=== PATIENT | female | born 1950 | race Caucasian/White ===

== ENCOUNTER 2018-09-21 15:03 | Inpatient (IN) | payer OTHER ==
[~2018-09-21] VITALS: Ht 167.6 cm; Wt 78.6 kg
[2018-09-21 15:05] VITALS: BP 148/118
[2018-09-21 15:47] LABS: URINE BILIRUBIN NEGATIVE (Negative); URINE BLOOD 3+ (Negative); URINE CLARITY SL CLOUDY; URINE COLOR YELLOW; URINE GLUCOSE-RANDOM* 3+ (Negative); URINE KETONES NEGATIVE (Negative); URINE NITRITE-REFLEX NEGATIVE (Negative); URINE PROTEIN (DIPSTICK) 2+ (Negative); URINE UROBILINOGEN 0.2 E.U./dl (0.2-1.0)
--- NOTE | 2018-09-21 15:48 | EKG ---
[place] [address] [facility] [place] [address] ELECTROCARDIOGRAM REPORT Name: CHARLOTTE CHAPPELL Room #: REG Yoselyn#: [id number] ������������������ Admission: 09/21/18 ������������������ Attend Phys: Discharge: ������������������ Date of : 48 Report #: [id number] ����������������������������������������������������������������� [id number] THIS REPORT FOR: //name// [facility] ED Test Date: 2018-09-21 Test Time: 15:31:03 Pat Name: CHARLOTTE CHAPPELL Department: Room: Gender: F Nutrition Consultant: ABBY : 1950 Requested By: Wendi Noel Order Number: [id number] MD: Rodrigo Collins Measurements Intervals [place] Rate: 108 P: 6 ND: 109 QRS: -61 QRSD: 95 T: 65 QT: 316 QTc: 424 Interpretive Statements Sinus tachycardia Left anterior fascicular block Low voltage, precordial leads Consider anterior infarct No previous ECG available for comparison Electronically Signed On 09-21-2018 15:48:32 CDT by Rodrigo Collins [email or web address] ��������������������������������������������� <ELECTRONICALLY SIGNED> ���������������������������������������� By: Rodrigo Collins MD ��������������������������������������������� 09/21/18 1548 1531 1531 Rodrigo Collins MD /MILANA
[2018-09-21 15:55] LABS: URINE LEUKOCYTES-REFLEX 2+ (Negative)
[2018-09-21 16:01] LABS: HEMATOCRIT 29.5 % (37.0-47.0); HEMOGLOBIN 9.9 gm/dL (12.0-15.0); MCH 30.6 pg (26.0-34.0); MCHC 33.5 g/dL (28.0-37.0); MCV 91.2 fL (80.0-100.0); PLATELET COUNT 222 thou/uL (150-400); RBC 3.23 mil/uL (4.20-5.00); RDW 16.1 % (10.5-14.5); WBC 17.1 thou/uL (4.0-11.0)
[2018-09-21 16:05] LABS: CASTS None Seen /LPF (None Seen); CRYSTALS None Seen /LPF (None Seen); SQUAMOUS None Seen /LPF (0-3); URINE WBC-REFLEX >25 Many /HPF (0-5)
[2018-09-21 16:06] LABS: BACTERIA-REFLEX >30 Many /HPF (None Seen); URINE RBC 3-10 Few /HPF (0-2)
[2018-09-21 16:13] LABS: ANION GAP 14 mmol/L (7-16); BUN 36 mg/dL (7-18); CALCIUM 10.2 mg/dL (8.5-10.1); CHLORIDE 102 mmol/L (98-107); CO2 22 mmol/L (21-32); CREATININE 3.8 mg/dL (0.6-1.0); GLUCOSE 121 mg/dL (74-106); POTASSIUM 4.3 mmol/L (3.5-5.1); SODIUM 138 mmol/L (136-145)
[2018-09-21 16:21] LABS: ABSOLUTE NEUTROPHILS 13.3 thou/uL (1.4-8.2); ANISOCYTOSIS 2+; METAMYELOCYTES 1 %
[2018-09-21 16:22] LABS: POLYCHROMASIA OCCASIONAL
[2018-09-21 16:23] LABS: ALBUMIN 2.8 g/dL (3.4-5.0); SGOT 26 U/L (15-37); SGPT 20 U/L (30-65); TOTAL BILIRUBIN 0.2 mg/dL (<0.1-1.0); TOTAL PROTEIN 7.6 g/dL (6.4-8.2); TROPONIN-I <0.06 ng/mL (<0.06)
[2018-09-21 17:44] LABS: ALBUMIN 2.7 g/dL (3.4-5.0); TOTAL PROTEIN 7.6 g/dL (6.4-8.2)
[2018-09-21 18:12] LABS: TSH 2.916 uIU/mL (0.358-3.740)
[2018-09-21 18:26] VITALS: BP 180/85
[2018-09-21 18:41] VITALS: BP 137/74
[2018-09-21] MEDS ORDERED: ARIPIPRAZOLE5 MG PO (19:17)
[2018-09-21] MEDS ORDERED: CLARITIN10 MG PO (19:17)
[2018-09-21] MEDS ORDERED: POTASSIUM20 PO (19:18)
[2018-09-21] MEDS ORDERED: MULTIPLE VITAM1 EAC2 PO (19:18)
[2018-09-21] MEDS ORDERED: VITAMIN E400 UNIT PO (19:19)
[2018-09-21] MEDS ORDERED: BENZTROPINE ME0.5 MG PO (19:19)
[2018-09-21] MEDS ORDERED: TYLENOL325 MG PO (19:20)
[2018-09-21] MEDS ORDERED: VALPROIC A250 MG/51 PO (19:20)
[2018-09-21] MEDS ORDERED: OYSTER SHELL C500 MG PO (19:21)
[2018-09-21] MEDS ORDERED: VISTARIL 25 MG25 M1 PO (19:21)
[2018-09-21] MEDS ORDERED: TRAZODONE HCL100 MG PO (19:22)
[2018-09-21] MEDS ORDERED: COLACE100 MG PO (19:23)
[2018-09-21] MEDS ORDERED: MIRALAX17 G1 PO (19:23)
[2018-09-21] MEDS ORDERED: SILTUSSIN100 MG/5 M PO (19:24)
[2018-09-21] MEDS ORDERED: SYNTHROID88 MCG PO (19:24)
[2018-09-21 20:45] VITALS: BP 147/84
[2018-09-22] MEDS ORDERED: VISTARIL 25 MG25 M1 PO (00:37)
[2018-09-22] MEDS ORDERED: SILTUSSIN100 MG/5 M PO (00:58)
[2018-09-22] MEDS ORDERED: OXYCODONE HCL 55 MG PO (01:01)
[2018-09-22 01:27] VITALS: BP 113/60
[2018-09-22 03:23] VITALS: BP 113/60
[2018-09-22 04:07] VITALS: BP 129/65
[2018-09-22 05:21] LABS: HEMATOCRIT 27.4 % (37.0-47.0); HEMOGLOBIN 8.8 gm/dL (12.0-15.0); MCH 29.8 pg (26.0-34.0); MCHC 32.2 g/dL (28.0-37.0); MCV 92.3 fL (80.0-100.0); RBC 2.97 mil/uL (4.20-5.00); RDW 16.4 % (10.5-14.5); WBC 15.8 thou/uL (4.0-11.0)
[2018-09-22 05:33] LABS: CALCIUM 9.1 mg/dL (8.5-10.1); CREATININE 3.2 mg/dL (0.6-1.0); POTASSIUM 4.1 mmol/L (3.5-5.1)
--- NOTE | 2018-09-22 05:57 | NUR ---
PT. ARRIVED AT 2009; ABLE TO AMBULATE WITH X1 ASSISST; ALERT TO PERSON; PLACE; SITUATION; NO TIME; C/O BACK PAIN; TEMPERATURE 102 F; BACK SIZER NOTIFIED; ORDERS RECEIVED; TEMPERATURE REASSESMENT 99.9; COOPERATIVE; CALM; ADMISSION ASSESSMENT OBTAINED FROM PT. AND CHART; PT. ABLE TO ANSWER SIMPLE QUESTIONS; NO GOOD HISTORIAN; CONSENTS NOT SIGNED; NOT RELATIVE AT THE BED SIDE; WILL PASS ON REPORT; EDUCATED ABOUT CALLING BEFORE STANDING UP; ST. UNDERSTANDING; THROUGH THE NIGHT PT. CALL APROPIATELY; AT 0202 NURSE INFORMED ABOUT BLOOD CULTURE RESULTS; BACK SIZER NOTIFIED; NO NEW ORDERS; PT. ABLE TO REST THROUGH THE NIGHT; ASSESSMENT CHARGED; FOLLOWING POC; WILL KEEP MONITORING;
[2018-09-22 08:00] VITALS: BP 132/79
[2018-09-22 12:50] LABS: URINE CREATININE-RANDOM* 18.2 mg/dL; URINE PROTEIN-RANDOM* 41.9 mg/dL (<11.9)
[2018-09-22 13:08] VITALS: BP 132/71
--- NOTE | 2018-09-22 17:58 | NUR ---
Assumed pt care this am, she is able to call appropriately and will wait to use the bed side commode. Able to answer simple questions but tends to get confused at times. Pt is able to follow simple commanda and able to answer simple straight forward questions. Daughter came to visit who is the guardian as well. Daughter does not have much history on the pt since it was onlt recent that they reconnected. Daughter will try to get other medical records of the pt, since she mentioned that the facility she is at is current and may not have it. Will endorse this [facility] nurse. POC followed, no verbalizations from the patient for any issues or complaints.
[2018-09-22 20:13] VITALS: BP 140/76
--- NOTE | 2018-09-23 05:32 | NUR ---
PT AOX2 AND SLEPT VERY LITTLE THIS SHIFT. PT USED THE BEDSIDE COMMODE FREQUEANTLY THIS SHIFT VOIDING ~100cc every 30 mins. CALLED [facility] TO OBTAIN MEDICAL RECORDS WITH NO SUCCESS. PT REQUESTING COGENTIN DUE TO TREMORS. WILL CALL [facility] AGAIN IN THE AM. NO OTHER QUESTIONS OR CONCERNS AT THIS TIME. WILL CONTINUE TO MONITOR.
[2018-09-23 06:10] LABS: ALBUMIN 2.5 g/dL (3.4-5.0); POTASSIUM 4.5 mmol/L (3.5-5.1)
[2018-09-23 06:11] LABS: CREATININE 2.2 mg/dL (0.6-1.0)
[2018-09-23 08:00] VITALS: BP 157/85
[2018-09-23 08:22] LABS: HEMATOCRIT 25.9 % (37.0-47.0); HEMOGLOBIN 8.4 gm/dL (12.0-15.0); MCH 29.6 pg (26.0-34.0); MCHC 32.5 g/dL (28.0-37.0); RBC 2.85 mil/uL (4.20-5.00); RDW 16.5 % (10.5-14.5)
--- NOTE | 2018-09-23 13:49 | HC ---
[facility] [place] [address] CONSULTATION Name: CHARLOTTE CHAPPELL Room #: 459-P ADM IN M.R.#: [id number] Admission: 09/21/18 ������������������ Attend Phys: Lui Wahl MD Discharge: ������������������ Date of : [birth year] Report #: [id number] THIS REPORT FOR: //name// CC: Leonard Wahl DATE OF SERVICE: 09/22/2018 REASON FOR CONSULTATION: I was asked to evaluate concerning pyelonephritis and gram-negative bacilli bacteremia. HISTORY OF PRESENT ILLNESS: The patient is a 67-year-old with underlying bipolar disorder, schizophrenia who resides in a longterm. Over the last week, she has been feeling poorly. She has had nonproductive cough along with dysuria. The patient could not give me much more detail of significance. I did talk with her daughter to gain more history. It is evident that she has had a 30+ year history of bipolar disorder and schizophrenia. This has limited her significantly. She was hospitalized in 2017, been in longterm since. She has also been diagnosed with colon cancer, stage III several years ago, had colon resection, but refused adjuvant chemotherapy. She has followed up with Oncology over the last month, but has not completed her followup. She was hospitalized, placed on ceftriaxone. Blood cultures now are showing gram-negative bacilli. Urine culture is pending. She has had continued cough with no pleuritic chest pain. No hemoptysis. Minimal shortness of breath. She does not exercise. She has had some dysuria. No back or flank pain. No gross hematuria. No vaginal discharge. Stools have been normal. REVIEW OF SYSTEMS: A 10-point review of systems is negative other than what is described above. ALLERGIES: None known. MEDICATIONS: As noted on her MAR, which were reviewed, now on ceftriaxone. PAST MEDICAL HISTORY: Hypertension, hypothyroidism, bipolar disorder, schizophrenia, colon cancer, and recurrent urinary tract infections. FAMILY HISTORY: Noncontributory. SOCIAL HISTORY: Nonsmoker, no significant alcohol intake. PHYSICAL EXAMINATION: VITAL SIGNS: Afebrile, hemodynamically stable. VITAL SIGNS: Maximum temperature is 102.5 on admission. She has been on 2 liters of oxygen per nasal cannula, heart rate was 109, and blood pressure 132/71. [address] [address] CONSULTATION Name: CHARLOTTE CHAPPELL Room #: 459-P [facility] IN M.R.#: [id number] Admission: 09/21/18 ������������������ Attend Phys: Lui Wahl MD Discharge: ������������������ Date of : 48 Report #: [id number] SKIN: Without rash or decubitus. No palpable adenopathy. Moderately obese. HEENT: Eyes are unremarkable with no scleral icterus. Mouth without mucositis. NECK: Supple, with no thyromegaly or mass. LUNGS: Clear. HEART: Regular, without murmur, gallop or rub. ABDOMEN: Soft and nontender with no hepatosplenomegaly or mass. She had bilateral CVA tenderness, which was mild to percussion. GENITAL: Not performed. Perianal examination was unremarkable. RECTAL: Not performed. EXTREMITIES: Without clubbing, cyanosis or edema. Cranial nerves are intact. Strength in upper and lower extremities was normal. Sensation in upper and lower extremities to test are normal. Mood, flat affect. LABORATORY STUDIES: Sodium 145, potassium 4.1, bicarbonate 21, creatinine 3.2. Liver function test is normal. Hemoglobin is 8.8, platelet count 194,000, and white count 15.8. Differential left shifted. Blood cultures 1 of 2 gram-negative bacilli. Urine culture is pending. Urinalysis, many wbc's and bacteria. Chest x-ray was clear. CT noncontrast of the abdomen was nondiagnostic. She did have several lesions to her kidneys and the liver. Ultrasound shows 1.6 cm lesion to the left kidney, which is indeterminate, and also 2 right kidney cysts, 3 cm; right hepatic cyst and gallstones. IMPRESSION: Gram-negative bacteremia, pyelonephritis, indeterminate cough, acute kidney injury with creatinine of 3.2. Bilateral renal lesions. The left kidney lesion is indeterminate, anemia, history of colon cancer, stage III without adjuvant chemotherapy; bipolar disorder and schizophrenia. RECOMMENDATION: We will continue ceftriaxone pending culture results. Once her renal function improves with, repeat CT scan with contrast to further evaluate the left kidney mass. Maintain nutrition and hydration. Nephrology service is following. ��������������������������������������������� <ELECTRONICALLY SIGNED> ���������������������������������������� By: Shiva Herrera MD ��������������������������������������������� 09/23/18 1349 1550 1145 Shiva Herrera MD /nt
[2018-09-23 15:00] VITALS: BP 150/87
--- NOTE | 2018-09-23 16:35 | NUR ---
PT ADMITTED RELATED TO UTI, QUINTIN. CM REVIEWED CHART AND SPOKE WITH CARE TEAM. CM MET WITH PT AT BEDSIDE THIS DAY. PT IS A&O X4. CM ROLE INTRODUCED. PT INDICATED SHE HAD BEEN LIVING AT [facility]. SHE INDICATED SHE HAD USED A FWW TO ASSIST WITH MOBILITY OPERATOR COATING FURNACE. PT INDICATED SHE PLANS TO RETURN TO [facility] ONCE MEDICALLY STABLE. CM CALLED PT'S DTR [facility] AND LEFT A VOICEMAIL FOR HER. CM TO FOLLOW INDICATED WITH DC PLANNING.
[2018-09-23 19:23] VITALS: BP 134/77
--- NOTE | 2018-09-23 19:24 | NUR ---
ASSUMED CARE OF PT AT 0700. ASSESSMENT COMPLETED. ALERT TO PERSON, PLACE, AND TIME. FORGETFUL AND CONFUSED AT TIMES. DENIES PAIN. FREQUENT URINATION NOTED R/T UTI, PT STANDBY ASSIST TO BATHROOM. STEADY GAIT NOTED. ROOM AIR. COUGH NOTED, NEW MEDS ORDERED FOR COUGH. DIM/COARSE LUNG SOUNDS, CHEST XRAY TODAY. DAUGHTER AT BEDSIDE THIS EVENING. PT IN STABLE CONDITION.
[2018-09-24 03:59] VITALS: BP 129/75
--- NOTE | 2018-09-24 05:08 | NUR ---
ASSUMED CARE OF PT AT 1900HRS. PT IS AOX2 AND WAS ABLE TO GET SOME SLEEP THIS SHIFT. PT WALKS TO THE BATHROOM. NO OTHER QUESTIONS OR CONCERNS AT THIS TIME. PT TO BE TRANSFERRED TO THIS AM. WILL CONTINUE TO MONITOR. PT PROGRESSING TOWARDS DC GOALS.
[2018-09-24 06:33] LABS: HEMATOCRIT 24.4 % (37.0-47.0); HEMOGLOBIN 8.1 gm/dL (12.0-15.0); MCH 29.9 pg (26.0-34.0); MCHC 33.2 g/dL (28.0-37.0); RBC 2.71 mil/uL (4.20-5.00); RDW 16.9 % (10.5-14.5)
[2018-09-24 06:48] LABS: ALBUMIN 2.2 g/dL (3.4-5.0); CALCIUM 8.2 mg/dL (8.5-10.1); CREATININE 2.2 mg/dL (0.6-1.0); PHOSPHORUS 2.4 mg/dL (2.5-4.9); POTASSIUM 3.8 mmol/L (3.5-5.1)
[2018-09-24 08:49] VITALS: BP 129/81
--- NOTE | 2018-09-24 13:48 | NUR ---
NEAL reviewed chart and spoke with nursing and attending physician. Pt was transferred to [facility] from and is progressing towards goals for discharge. NEAL faxed clinical info to [facility] for review, and spoke with Carmen in admissions. Carmen confirms they are able to accept pt back when she is medically stable. NEAL is following to assist as needed with discharge planning.
--- NOTE | 2018-09-24 13:51 | NUR ---
ASSUMED CARE OF PATIENT THIS MORNING. PATIENT WAS BROUGHT TO UNIT SHORTLY AFTER MORNING HUDDLE. PATIENT IS UP WITH SBA WHEN AMBULATING. SHE IS ON FALL PRECAUTIONS. A&O W/SOME FORGETFULNESS. SHE WEARS A BRIEF. PATIENT CALLS OUT APPROPRIATELY FOR ASSISTANCE. SHE RECEIVED TYLENOL EARLY THIS AFTERNOON FOR HEADACHE RATED PAIN 10/10, WHEN REASSESSED PATIENT WAS SLEEPING. SHE HAS HAD A COUGH THIS MORNING AND HAS BEEN COUGHING UP CLEAR PHELGM. PATIENT IS CURRENTLY LYING IN BED WITH CALL LIGHT WITHIN REACH.
--- NOTE | 2018-09-24 19:35 | NUR ---
I AGREE WITH NURSING ASSESSMENT DONE BY SHAWNA/MIKHAIL AND NURSING NOTE.
[2018-09-24 20:26] VITALS: BP 122/86
[2018-09-24 23:11] VITALS: BP 122/86
--- NOTE | 2018-09-25 03:01 | NUR ---
Assumed pt. care at 1900. Pt remains A&Ox 2-3; swallows meds whole w/o difficulty. Remains cont. B&B. Ambulates w/ standby asst to bathroom; gait steady. Remains on Fall precautions. Remains on IVABT/UTI. LAC SL intact/infused ABT + fluids w/o difficulty; no blood return noted. Dry, non - productive cough noted. Last BM 09/24/18. Pt has no c/o pain or discomfort. No s/s of acute distress noted. Pt. in bed asleep w/ call light/desired belongings within reach. Bed/chair alarm intact. Po fluids encouraged. Will continue to monitor.
[2018-09-25 06:29] LABS: HEMATOCRIT 27.3 % (37.0-47.0); HEMOGLOBIN 8.7 gm/dL (12.0-15.0); MCH 29.6 pg (26.0-34.0); MCV 92.6 fL (80.0-100.0); RBC 2.95 mil/uL (4.20-5.00); RDW 17.2 % (10.5-14.5); WBC 7.9 thou/uL (4.0-11.0)
[2018-09-25 06:43] LABS: ALBUMIN 2.2 g/dL (3.4-5.0); CALCIUM 8.6 mg/dL (8.5-10.1); CREATININE 2.1 mg/dL (0.6-1.0); PHOSPHORUS 4.2 mg/dL (2.5-4.9); POTASSIUM 4.1 mmol/L (3.5-5.1)
[2018-09-25 08:01] VITALS: BP 146/88
--- NOTE | 2018-09-25 13:18 | NUR ---
ASSUMED CARE OF PATIENT THIS MORNING. PATIENT IS ALERT AND ORIENTED WITH SOME FORGETFULNESS. SHE GETS UP W/SBA. SHE CALLS OUT APPROPRIATELY FOR ASSISTANCE. FALL PRECAUTIONS ARE IN PLACE. SHE VOIDS FREQUENTLY. SHE HAS D5W RUNNING AT 125ML/HR. PATIENT HAS HAD A DRY/CONGESTED COUGH WHICH SHE RECEIVES COUGH SYRUP FOR. HER BREATH SOUNDS WERE DIMINISHED/RHOCHI. SHE IS CURRENTLY LYING IN BED WITH CALL LIGHT WITHIN REACH AND BED ALARM SET.
[2018-09-25 19:41] VITALS: BP 130/74
--- NOTE | 2018-09-26 02:05 | NUR ---
Assumed pt. care at 1900. Pt. remains A&Ox3; swallows meds whole w/o difficulty. Remains cont. B&B. Ambulates to bathroom w/ standby asst; gait steady. LAC SL noted/infusing D5@125ml/hr w/o difficulty. Remains on PO ABT/UTI; no adverse reactions noted. PT. continues to have a dry, non - productive cough. Continues w/ Q4 RT txs w/o difficulty. Remains on fall precautions. Denies pain or discomfort. No s/s of acute distress noted. Pt asleep in bed w/ call light/desired belongings within reach. Bed/chair alarm intact. PO fluids encouraged. Will continue to monitor.
[2018-09-26 06:59] LABS: ALBUMIN 2.2 g/dL (3.4-5.0); CALCIUM 8.8 mg/dL (8.5-10.1); POTASSIUM 3.9 mmol/L (3.5-5.1)
[2018-09-26 08:15] VITALS: BP 144/87
--- NOTE | 2018-09-26 12:10 | NUR ---
DISCHARGE NOTE: NEAL reviewed chart and spoke with nursing and attending physician. Pt is medically stable for discharge back to [facility] today. Awaiting final discharge orders at this time. Chart copy ordered. medical planner to coordinate. SW is available to assist should needs arise.
[2018-09-26] MEDS ORDERED: AZITHROMYCIN 2250 MG PO (13:14)
[2018-09-26] MEDS ORDERED: AMOXICILLIN 50500 M1 PO (13:14)
--- NOTE | 2018-09-26 14:13 | NUR ---
DISCHARGE ORDERS RECEIVED. PATIENT RETURNING TO HER RN PROVIDER RELATIONS CARE FACILITY, [facility]. CHART COPIED PER COMMERCIAL ASSISTANT. ORDERS FAXED TO [facility], VERIFIED RECEIVED. DAUGHTER NOTFIFIED OF DISCHARGE AND WILL TRANSPORT PATIENT BACK TO [facility] THIS AFTERNOON. UNIT RN NOTIFIED AND CONTACT NUMBER FOR REPORT PROVIDED TO HER. UNIT CM/SW AWARE.
--- NOTE | 2018-09-26 17:41 | NUR ---
PATIENT CARE WAS ASSUMED AT 0715.PATIENT IS ALET AND ORIENTED X3.PT IS FORGETFUL,AND NOT ABLE TO MAKE DECISIONS ON HER OWN,DAUGHTER (DPOA) MAKE HEALTH CARE DECISIONS.IV IS INTACT, FLUIDS INFUSING.PATIENT HAS NO COMPLAINS OF PAIN.PT IS STAND BY ASSIST, AND VOID FREQUENTLY.FALL PRECAUTIONS ARE IN PLACE.CALL LIGHT,PHONE AND PERSONAL BELONGINGS ARE WITHIN REACH.
--- NOTE | 2018-09-26 17:44 | NUR ---
PATIENT WAS DISCHARGED TO GO TO [facility].DAUGHTER TOOK PATIENT TO FACILITY.PATIENT IS DRESSED AND IV WAS TAKEN OUT.DISCHARGE PACKET WAS GIVEN TO DAUGHTER TO TAKE TO NURSE.[facility] CALLED AND ASKED FOR D/C PAPERS TO BE FAXED TRIED TO FAX 3 TIMES, WAS SUCCESSFUL LAST ATTEMPT.REPORT WAS CALLED AND NURSE AT [facility] WAS NOT ABLE TO SPEAK DIRECTLY TO NURSE,A MESSAGE WAS LEFT, WILL TRY TO CALL AGAIN.PATIENT HAS ALL OF HER BELONGINGS, AND WAS TAKEN OUT BY TRANSPORTATION VIA W/C.
--- NOTE | 2018-09-28 07:23 | HC ---
[facility] [place] [address] CONSULTATION Name: CHARLOTTE CHAPPELL Room #: 224-P [facility] IN M.R.#: [id number] Admission: 09/21/18 ������������������ Attend Phys: Lui Wahl MD Discharge: 09/26/18 ������������������ Date of : 48 Report #: [id number] THIS REPORT FOR: //name// CC: Leonard Wahl REASON FOR CONSULTATION: Elevated creatinine. REASON FOR THE PRESENTATION: Weakness. HISTORY OF PRESENT ILLNESS: A 67-year-old with bipolar disorder and schizophrenia, who is not able to provide me with the details of the history, but she reported to her nursing staff that she has been feeling weak and shaky. She is not aware of any previous kidney problems. She denies any syncopal events. However, she did have some dizziness and lightheadedness. No chest pain or palpitations. She did report dysuria. No nonsteroidal anti-inflammatory medications. History is really limited since the patient has mental status issues. I reviewed her nursing facility notes and unfortunately, those were very limited, with not that much information. The patient has been residing in the nursing facility due to mental illness. When she presented yesterday, she had a white blood cell count of 17,000. She also has an elevated creatinine. I am being asked to evaluate her kidney issues. PAST MEDICAL HISTORY: 1. Bipolar disorder. 2. Schizophrenia. 3. Hypothyroidism. 4. It is mentioned in one of the notes that she has hypertension, but I do not see any blood pressure medications. SOCIAL HISTORY: Resides in a nursing facility. No drug or alcohol abuse. ALLERGIES: None. FAMILY HISTORY: Unobtainable given the patient's mental status. REVIEW OF SYSTEMS: Really not obtainable given the patient's mental status. PHYSICAL EXAMINATION: GENERAL: She is alert, awake. VITAL SIGNS: Temperature is 37.1, blood pressure is 132/ . HEAD AND NECK: No jugular venous distention. CHEST: No crackles. CARDIOVASCULAR: No rub. ABDOMEN: Soft, nontender with no hepatosplenomegaly. LOWER EXTREMITIES: With +1 edema. [facility] [address] [place] [address] CONSULTATION Name: CHARLOTTE CHAPPELL Room #: 224-P [facility] IN M.R.#: [id number] Admission: 09/21/18 ������������������ Attend Phys: Lui Wahl MD Discharge: 09/26/18 ������������������ Date of : 48 Report #: [id number] LABORATORY DATA: Laboratory values reviewed. Sodium is 145, potassium is 4.1, BUN is 32 and creatinine is 3.2, down from 3.8. White blood cell count 17.1 yesterday and down to 15.[address] abdomen is significant for gallbladder stones. Chest x-ray, no acute process. Lower extremity Doppler with no DVT. ASSESSMENT, IMPRESSION AND PLAN: 1. Acute kidney injury. 2. Schizophrenia. 3. Bipolar disorder. 4. We would really like to know what the patient's baseline renal function is. Unfortunately, no labs are available. At this point, I will initiate appropriate workup for the patient. 5. Continue with IV fluids. 6. Watch electrolytes. 7. Avoid nephrotoxins. 8. We will continue to follow along and provide with further orders and advices as we obtain results of ordered study. ��������������������������������������������� <ELECTRONICALLY SIGNED> ���������������������������������������� By: Rajesh Beavers MD ��������������������������������������������� 09/28/18 0723 0902 0006 Rajesh Beavers MD /nt
== END 2018-09-26 17:52 | DRG 871 ==
LOC: ER 15:03 → 4W 16:40 → EROBS 16:40 → 4W 18:42 → SICU 09-24 08:27 → ENTRNSPT 09-26 16:49 → SICU 09-26 17:52
PROVIDERS: Hospitalist; Physician Assistant; ADMIT Internal Medicine
DX: A41.9 Sepsis, unspecified organism (principal); G93.41 Metabolic encephalopathy; N17.9 Acute kidney failure, unspecified; N12 Tubulo-interstitial nephritis, not specified as acute or chronic; E87.0 Hyperosmolality and hypernatremia; I12.0 Hypertensive chronic kidney disease with stage 5 chronic kidney disease or end stage renal disease; F20.9 Schizophrenia, unspecified; G47.00 Insomnia, unspecified; E03.9 Hypothyroidism, unspecified; F31.9 Bipolar disorder, unspecified; Z66 Do not resuscitate; D64.9 Anemia, unspecified; B96.20 Unspecified Escherichia coli [E. coli] as the cause of diseases classified elsewhere; E66.01 Morbid (severe) obesity due to excess calories; G47.33 Obstructive sleep apnea (adult) (pediatric); I73.9 Peripheral vascular disease, unspecified; I25.10 Atherosclerotic heart disease of native coronary artery without angina pectoris; Z85.038 Personal history of other malignant neoplasm of large intestine; Z68.28 Body mass index [BMI] 28.0-28.9, adult; Z79.899 Other long term (current) drug therapy; N18.9 Chronic kidney disease, unspecified
CPT/HCPCS: 10045; 10047; 15002

== ENCOUNTER 2020-03-30 09:22 | Inpatient (IN) | payer OTHER ==
[2020-03-30] VITALS (10 sets, daily range): BP systolic 111–154; BP diastolic 56–96
[~2020-03-30] VITALS: Ht 162.6 cm; Wt 70.5 kg
--- NOTE | ~2020-03-30 | O ---
[facility] [place] [address] OPERATIVE REPORT Name: CHARLOTTE CHAPPELL Room #: 206-P ADM IN M.R.#: [id number] Admission: 03/30/20 Attend Phys: Gerry Patiño MD Discharge: Date of : 48 Report #: [id number] THIS REPORT FOR: cc: Evaristo Carreon,Evaristo Robins,Larry Davis MD ~ CC: Evaristo Patiño PREOPERATIVE DIAGNOSIS: Right trimalleolar ankle fracture. POSTOPERATIVE DIAGNOSES: Right trimalleolar ankle fracture. PROCEDURE PERFORMED: Right ankle open reduction and internal fixation of medial and lateral malleolar fractures. SURGEON: Larry Garcia MD MILIEU MANAGER: Jina Harvey PA-C. ANESTHESIA: General. FLUIDS: 300 mL crystalloid. ESTIMATED BLOOD LOSS: Negligible. TOURNIQUET TIME: Approximately 39 minutes at 300 mmHg. DESCRIPTION OF PROCEDURE: After proper identification of the patient and operative site in preoperative holding area, the operative site was signed by myself. Prophylactic antibiotics were given. Consent was obtained for the above-noted procedure. Risks, benefits, alternatives and complications were gone over in detail. The patient was brought back to the operative suite after induction of satisfactory general anesthesia. The right lower extremity was elevated. Tourniquet was applied to the upper thigh. The splint placed in the ER was removed. Soft tissues were amenable to operative fixation. There appeared to be no skin at risk. No fracture blisters were notified. Minimal swelling was appreciated. The limb was sterilely prepped and draped in the usual manner, elevated and exsanguinated with an Esmarch. Tourniquet was inflated to 300 mmHg. An incision overlying the lateral malleolar fracture was planned slightly posterior to the lateral midline. Full-thickness skin flaps were developed. The patient had a long oblique fracture with some comminution of the more posterior spike portion of the distal fragment that made this not amenable to a lag screw fixation. A semi-third tubular locking plate was provisionally contoured and secured with a single cortical screw. Overall fracture alignment as well as the ankle mortise appeared to be well maintained [address] [address] OPERATIVE REPORT Name: CHARLOTTE CHAPPELL Room #: 206-P ADM IN M.R.#: [id number] Admission: 03/30/20 Attend Phys: Gerry Patiño MD Discharge: Date of : 48 Report #: [id number] and reduced and at this point, additional cortical and locking screws were placed superiorly with a combination of cortical and cancellous screws placed in the more distal fragment. All screws were extraarticular and this anatomically reduced the fracture. Medially, a separate incision was made about the medial malleolus. Care was taken to preserve the neurovascular structures and 2 guidewires were inserted into the medial malleolus after it was held reduced with a dental pick. Fracture alignment was verified, near cortex was drilled and two 40 mm long thread 4.0 screws were inserted. These had good purchase. Fracture remained anatomically reduced. Ankle mortise was well reduced. All hardware was extraarticular. The wounds were thoroughly irrigated with normal saline, 2-0 Vicryl was used to close subcutaneous tissues, final skin closure was with marilu. A well-padded sterile dressing, overwrapped with a bulky Garrett was applied as well as a posterior and sugar tong splint. This was overwrapped with an Jairon bandage. Qualified first officer and flight instructor utilized throughout the entire procedure to aid in patient limb positioning, visualization and retraction of the soft tissues, instrument passage and dressing application. The patient will remain nonweightbearing within a padded short leg splint. At time of dictation, the patient was still in the operative suite with anticipated discharge to recovery room in stable condition. By: 1416 1424 Larry Garcia MD /nt
--- NOTE | ~2020-03-30 | EKG ---
[facility] [place] [address] ELECTROCARDIOGRAM REPORT Name: CHARLOTTE CHAPPELL Room #: 206- ADM IN M.R.#: [id number] Admission: 03/30/20 Attend Phys: Gerry Patiño MD Discharge: Date of : 48 Report #: [id number] THIS REPORT FOR: cc: Evaristo Carreon,Lauren Adams MD ~ THIS REPORT FOR: //name// [facility] Test Date: 2020-04-01 Test Time: 12:23:57 Pat Name: CHARLOTTE CHAPPELL Department: Room: 206 Gender: F Feed Mill Manager: HEATH : 1950 Requested By: Khushi Tomas Order Number: [id number] MD: Measurements Intervals [place] Rate: 93 P: OR: QRS: -66 QRSD: 96 T: 99 QT: 392 QTc: 488 Interpretive Statements Atrial flutter with predominant 3:1 AV block Left anterior fascicular block Probable anterior infarct, age indeterminate Compared to ECG 03/30/2020 11:18:27 AV block, advanced (high-grade) now present Sinus rhythm no longer present Atrial premature complex(es) no longer present ST (T wave) deviation no longer present Myocardial infarct finding still present [email or web address] By: 22 22 Epiphany EpiphanyMD /MILANA
--- NOTE | ~2020-03-30 | EKG ---
[facility] [place] [address] ELECTROCARDIOGRAM REPORT Name: CHARLOTTE CHAPPELL Room #: 206- ADM IN M.R.#: [id number] Admission: 03/30/20 Attend Phys: Gerry Patiño MD Discharge: Date of : 48 Report #: [id number] THIS REPORT FOR: cc: Evaristo Carreon,Lauren Adams MD ~ THIS REPORT FOR: //name// [facility] [place] [place] Test Date: 2020-04-01 Test Time: 12:23:57 Pat Name: CHARLOTTE HCAPPELL Department: Room: 206 Gender: F Hogshead Salvage: HEATH : 1950 Requested By: Gerry Patiño Order Number: [id number] MD: Measurements Intervals [place] Rate: 93 P: [place]: QRS: -66 QRSD: 96 T: 99 QT: 392 QTc: 488 Interpretive Statements Atrial flutter with predominant 3:1 AV block Left anterior fascicular block Probable anterior infarct, age indeterminate Compared to ECG 03/30/2020 11:18:27 AV block, advanced (high-grade) now present Sinus rhythm no longer present Atrial premature complex(es) no longer present ST (T wave) deviation no longer present Myocardial infarct finding still present [email or web address] By: 22 22 Epiphany EpiphanyMD /MILANA
[~2020-03-30 09:22] MED LIST: AMOXICILLIN 50500 M1 PO; ARIPIPRAZOLE5 MG PO; AZITHROMYCIN 2250 MG PO; BENZTROPINE ME0.5 MG PO; CLARITIN10 MG PO; COLACE100 MG PO; MIRALAX17 G1 PO; MULTIPLE VITAM1 EAC2 PO; OXYCODONE HCL 55 MG PO; OYSTER SHELL C500 MG PO; POTASSIUM20 PO; SILTUSSIN100 MG/5 M PO; SYNTHROID88 MCG PO; TRAZODONE HCL100 MG PO; TYLENOL325 MG PO; VALPROIC A250 MG/51 PO; VISTARIL 25 MG25 M1 PO; VITAMIN E400 UNIT PO
[2020-03-30 11:08] LABS: HEMOGLOBIN 6.7 gm/dL (12.0-15.0)
[2020-03-30 11:10] LABS: HEMATOCRIT 22.3 % (37.0-47.0); MCH 21.7 pg (26.0-34.0); MCHC 29.9 g/dL (28.0-37.0); MCV 72.4 fL (80.0-100.0); PLATELET COUNT 501 thou/uL (150-400); RBC 3.08 mil/uL (4.20-5.00); RDW 23.7 % (10.5-14.5); WBC 14.6 thou/uL (4.0-11.0)
[2020-03-30 11:16] LABS: CREATININE 4.4 mg/dL (0.6-1.0); POTASSIUM 3.9 mmol/L (3.5-5.1)
[2020-03-30 11:39] LABS: PLATELET ESTIMATE INCREASED
[2020-03-30 11:40] LABS: ANISOCYTOSIS 2+; HYPOCHROMASIA 2+; MICROCYTES 1+
[2020-03-30 11:41] LABS: MACROCYTES SLIGHT; POLYCHROMASIA SLIGHT
--- NOTE | 2020-03-30 12:37 | EKG ---
[facility] [place] [address] ELECTROCARDIOGRAM REPORT Name: TONY CHAPPELLNA Room #: REG [facility]#: [id number] Admission: 03/30/20 Attend Phys: Discharge: Date of : 48 Report #: [id number] THIS REPORT FOR: cc: Evaristo Carreon,Tahir Anderson MD [facility] ~ THIS REPORT FOR: //name// [facility] ED Test Date: 2020-03-30 Test Time: 11:18:27 Pat Name: CHARLOTTE CHAPPELL Department: Room: Gender: F Material Liaison: MEGHA : 1950 Requested By: Tyson Randolph Order Number: [id number] MD: Tahir Lino Measurements Intervals [place] Rate: 92 P: 16 GA: 118 QRS: -58 QRSD: 96 T: 82 QT: 370 QTc: 458 Interpretive Statements Sinus rhythm Atrial premature complexes Borderline short GA interval Left anterior fascicular block Consider anterior infarct Minimal ST depression, lateral leads Compared to ECG 09/21/2018 15:31:03 Atrial premature complex(es) now present ST (T wave) deviation now present Sinus tachycardia no longer present Myocardial infarct finding still present Electronically Signed On 03-30-2020 12:37:24 CARGO AND CONTAINER INSPECTOR by Tahir Lino [email or web address] <ELECTRONICALLY SIGNED> By: Tahir Lino MD, FACC 03/30/20 1237 111 Tahir Lino MD, FAC /EPI
[2020-03-30 13:31] LABS: % SATURATION 6 % (20-39); IRON 13 ug/dL (50-170); TIBC 227 ug/dL (250-450)
[2020-03-30 14:31] LABS: FOLIC ACID 26.8 ng/mL (8.6-58.9)
--- NOTE | 2020-03-30 20:05 | NUR ---
PT CARE ASSUMED 1400. ASSESSMENT CHARTED. MEDICATIONS CHARTED. LW IV; INFILTRATED; REMOVED. IV THERAPY INSERTED LFA AND JERALD. 1 UNIT RBC GIVEN TO LW BEFORE INFITRATION. NEEDED TO WAIT FOR IV THERAPY TO INSERT 2 IV'S; ATTEMPTED X 3; KEYLA ATTEMPTED X1; ALL UNSUCCESSFULLY UNTIL IV THERAPY. AMS; PT IS DIFFICULT TO UNDERSTAND AND IMPULSIVE. RT ANKLE FRACTURE; ATTEMPTS TO GET OUT OF BED TO USE TOILET.
--- NOTE | 2020-03-31 02:29 | NUR ---
ASSUMED CARE OF PATIENT AT 1900. PATIENT RESTLESS AND IMPULSIVE. DOES NOT USE CALL LIGHT APPROPRIATELY AND SET BED ALARM OFF FREQUENTLY ATTEMPTING TO GET OUT OF BED UNASSISTED. PATIENT DENIES PAIN AT ASSESSMENT.
[2020-03-31 03:40] VITALS: BP 137/77
[2020-03-31 06:05] LABS: HEMATOCRIT 28.2 % (37.0-47.0); HEMOGLOBIN 8.6 gm/dL (12.0-15.0); MCH 23.9 pg (26.0-34.0); MCHC 30.5 g/dL (28.0-37.0); RBC 3.59 mil/uL (4.20-5.00); WBC 11.3 thou/uL (4.0-11.0)
[2020-03-31 06:09] LABS: MCV 78.5 fL (80.0-100.0); PLATELET COUNT 391 thou/uL (150-400)
[2020-03-31 06:26] LABS: CALCIUM 9.7 mg/dL (8.5-10.1); CREATININE 4.2 mg/dL (0.6-1.0); MAGNESIUM 2.5 mg/dL (1.8-2.4); POTASSIUM 3.5 mmol/L (3.5-5.1)
[2020-03-31 06:57] LABS: URINE BILIRUBIN NEGATIVE (Negative); URINE BLOOD NEGATIVE (Negative); URINE CLARITY CLEAR; URINE COLOR YELLOW; URINE GLUCOSE-RANDOM* 2+ (Negative); URINE KETONES NEGATIVE (Negative); URINE LEUKOCYTES-REFLEX NEGATIVE (Negative); URINE NITRITE-REFLEX NEGATIVE (Negative); URINE PROTEIN (DIPSTICK) NEGATIVE (Negative); URINE SPECIFIC GRAVITY 1.015 (1.005-1.035); URINE UROBILINOGEN 0.2 E.U./dl (0.2-1.0)
[2020-03-31 07:44] VITALS: BP 142/67
[2020-03-31 08:56] LABS: ABSOLUTE NEUTROPHILS 8.5 thou/uL (1.4-8.2); ANISOCYTOSIS 2+; NUCLEATED RBCS 1 /100WBC; PLATELET ESTIMATE NORMAL
[2020-03-31 08:57] LABS: POLYCHROMASIA 1+
[2020-03-31 11:03] VITALS: BP 147/69
[2020-03-31 11:55] LABS: URINE CREATININE-RANDOM* 75.2 mg/dL; URINE PROTEIN-RANDOM* 52.9 mg/dL (<11.9)
[2020-03-31 14:59] VITALS: BP 125/66
--- NOTE | 2020-03-31 17:43 | NUR ---
ASSESSMENT CHARTED. PT ALERT AND ORIENTED TO SELF. VSS. NPO AFTER MIDNIGHT FOR SURGERY IN AM. DAUGHTER UPDATED ON PT'S PROGRESS. NO CONCERNS AT THIS TIME.
[2020-03-31 20:00] VITALS: BP 138/65
[2020-03-31 23:56] VITALS: BP 134/52
[2020-04-01 04:40] VITALS: BP 130/55
[2020-04-01 06:40] LABS: CALCIUM 8.3 mg/dL (8.5-10.1); CREATININE 3.6 mg/dL (0.6-1.0); PHOSPHORUS 4.1 mg/dL (2.5-4.9); POTASSIUM 3.6 mmol/L (3.5-5.1)
--- NOTE | 2020-04-01 07:32 | NUR ---
PT REMAINS ALERT TO SELF, IMPULSIVE SETTING OFF BED ALARM, YELLS OUT FOR HELP, VSS, IV INFUSING IN L ARM, PRN PAIN MED GIVEN FOR C/O LEG AND ABDOMEN PAIN, NPO FOR R ANKLE FX SURG., WILL CON'T TO MONITOR PER PPOC.
[2020-04-01 08:42] LABS: HEMATOCRIT 29.2 % (37.0-47.0); HEMOGLOBIN 8.7 gm/dL (12.0-15.0); MCH 23.7 pg (26.0-34.0); MCHC 29.8 g/dL (28.0-37.0); MCV 79.3 fL (80.0-100.0); RBC 3.68 mil/uL (4.20-5.00); RDW 25.2 % (10.5-14.5)
[2020-04-01 08:45] VITALS: BP 145/69
--- NOTE | 2020-04-01 09:48 | NUR ---
O.T. EVALUATION DEFERRED DUE TO SURGERY PLANS THIS AFTERNOON FOR LEFT ANKLE FRACTURE. NEED NEW O.T. ORDERS POST-OP.
--- NOTE | 2020-04-01 10:34 | NUR ---
PT CARE ASSUMED AT 0700. ALERT TO SELF. PT CALMLY AWAITNG SURGERY TODAY OF THE R. ANKLE. CONSENT SIGNED ON THE CHART. NPO SINCE MIDNIGHT. COVID NEGATIVE. PT/OT ON BOARD. PT WILL STATE SHE NEEDS TO GO TO THE BATHROOM AND USES THE BEDPAN WITHOUT ANY PROBLEMS, NO SIGNS OF URINE RETENTION AT THIS TIME. IV PATENT WITH NO REDNESS OR EDEMA, FLUIDS INFUSING. IRON ORDERED FROM THE ONCOLOGIST PER HOME REGIMENT. FALL PROTOCOL IN PLACE. SWABS IN THE ROOM TO MOISTEN MOUTH. CALL LIGHT IN REACH. ON ROOM AIR AT THE TIME. 2L FOR COMFORT AT NIGHT. WILL CONTINUE TO MONITOR.
--- NOTE | 2020-04-01 11:25 | NUR ---
Patient admits from [facility] with ankle fx post fall at facility. Sp with Missy at [facility] and updated on care. Patient is ltc resident at facility. sp with Guardian reviewed role of casemgt. Patient with possible sx today. casemgt following plan return to facility once stable.
[2020-04-01] MEDS ORDERED: NORVASC 2.5 MG2.5 M1 PO (11:39)
[2020-04-01] MEDS ORDERED: CATAPRES0.1 MG PO (11:41)
[2020-04-01] MEDS ORDERED: MS CONTIN15 MG PO (11:48)
[2020-04-01] MEDS ORDERED: MIRALAX119 GM PO (11:50)
[2020-04-01 12:31] VITALS: BP 132/66
[2020-04-01 16:19] VITALS: BP 120/69
--- NOTE | 2020-04-01 17:00 | EKG ---
[facility] [place] [address] ELECTROCARDIOGRAM REPORT Name: TONY CHAPPELLNA Room #: 447-P ADM IN M.R.#: [id number] Admission: 03/30/20 Attend Phys: Gerry Patiño MD Discharge: Date of : 48 Report #: [id number] THIS REPORT FOR: cc: Velma,Evaristo Braden,Evaristo Turner,Tahir MANZO [facility] THIS REPORT FOR: //name// [facility] Test Date: 2020-04-01 Test Time: 12:23:57 Pat Name: CHARLOTTE CHAPPELL Department: Room: [facility] Gender: F Awning Craftsman: HEATH : 1950 Requested By: Gerry Patiño Order Number: [id number] MD: Tahir Lino Measurements Intervals [place] Rate: 93 P: [place]: QRS: -66 QRSD: 96 T: 99 QT: 392 QTc: 488 Interpretive Statements AFIB Left anterior fascicular block Compared to ECG 03/30/2020 11:18:27 Sinus rhythm no longer present Atrial premature complex(es) no longer present ST (T wave) deviation no longer present Electronically Signed On 04-01-2020 17:00:04 RECRUITMENT MANAGER by Tahir Lino [email or web address] <ELECTRONICALLY SIGNED> By: Tahir Lino MD, FACC 04/01/20 1700 1223 122 Tahir Lino MD, FAC /EPI
--- NOTE | 2020-04-01 19:32 | NUR ---
PT ARRIVED ON UNIT, AOX3-4, VSS, DENIES PAIN. TOES IN RIGHT FOOT PINK & WARM TO TOUCH. 2+ PULSES RIGHT FOOT, REPORTS RIGHT LEG FEELS HEAVY FROM ANES. BLOCK. SPLINT, AMY WRAPP, ICE PACK ON RLE. CURRENTLY ELEVATED ON PILLOW. RIGHT HAND IV IS PATENT WITH IV FLUIDS RUNNING. NURSE EDUCATED PT TO CALL FOR ASSISTANCE. WILL CONTINUE TO MONITOR.
[2020-04-01 19:49] VITALS: BP 140/91
[2020-04-01 22:53] VITALS: BP 126/80; BP 140/91
[2020-04-02 03:26] VITALS: BP 126/80
--- NOTE | 2020-04-02 03:56 | NUR ---
PT AOX2, TO PERSON AND SITUATION. PT ALSO PLEASANTLY CONFUSED. PT NOTED TO BE HARD OF HEARING WITHOUT HEARING AIDES. PT REPORTS 10/10 PAIN IN RIGHT ANKLE HEAVY. PT RECEIVING PRN PO NORCO Q4HR WITH PRN PO APAP Q4HR AVAILABLE. PT REPORTING NORCO INEFFECTIVE PT WITHOUT PAIN RELIEF. ONCALL WINDSCREEN FITTER NOTIFIED, EMAR UPDATED. PT GIVEN ONETIME IV FENTANYL WITH NOTED EFFECT. PT WITH +1 EDEMA TO RLE. SENSATION INTACT TO ALL EXTREMITIES, CAPILLARY REFILL LESS THAN 3SEC IN ALL EXTREMITIES. RLE REMAINS IN CAST, NO DRAINAGE NOTED. PT TOLERATING PO INTAKE OF FLUIDS, DIET ADVANCED TO PUREED WRITTEN BY GEOFFREY GONSALES ON 04/01/20. PT VOIDING PER BED LOBATO, AWARE OF BOWEL AND BLADDER NEEDS. FREQUENT REPOSITIONING ENCOURAGED, PT NOTED TO SHIFT INDEPENDENTLY WHILE IN BED, REFUSING REPOSITION ASSISTANCE DUE TO REPORTS OF COMFORT. PT ENCOURAGED TO NOTIFY STAFF FOR ALL NEEDS, CALL LIGHT WITHIN REACH, BED ALARM ON, BED IN LOWEST POSITON, FREQUENT MONITORING WILL CONTINUE.
[2020-04-02 06:15] LABS: HEMATOCRIT 28.7 % (37.0-47.0); HEMOGLOBIN 8.6 gm/dL (12.0-15.0); MCH 24.1 pg (26.0-34.0); MCHC 29.9 g/dL (28.0-37.0); MCV 80.7 fL (80.0-100.0); RBC 3.55 mil/uL (4.20-5.00); RDW 25.5 % (10.5-14.5); WBC 11.8 thou/uL (4.0-11.0)
[2020-04-02 06:46] LABS: ALBUMIN 1.9 g/dL (3.4-5.0); CALCIUM 7.8 mg/dL (8.5-10.1); CREATININE 3.4 mg/dL (0.6-1.0); PHOSPHORUS 3.9 mg/dL (2.5-4.9); POTASSIUM 3.2 mmol/L (3.5-5.1)
--- NOTE | 2020-04-02 07:13 | HC ---
[facility] [place] [address] CONSULTATION Name: CHARLOTTE CHAPPELL Room #: 447-P ADM IN M.R.#: [id number] Admission: 03/30/20 Attend Phys: Gerry Patiño MD Discharge: Date of : 48 Report #: [id number] THIS REPORT FOR: cc: Evaristo Carreon,Evaristo Singh,Kieran Manzano MD ~ REASON FOR CONSULTATION: Iron deficiency anemia. HISTORY OF PRESENT ILLNESS: The patient is a 69-year-old female who lives at a nursing facility, supposedly fell, in the ER was thought to have fracture of her right ankle with a trimalleolar fracture. From the notes, I believe she is scheduled for surgery later today. On admission, hemoglobin was 6.7 with an MCV of 72.4. Note that her records from show that on 03/08, her hemoglobin was 7.1. She was iron deficient, had there been plans for her to receive IV iron, but I do not know that that has occurred per the records I have available. Here, her iron is 13, percent sat 6, TIBC 227, ferritin 45, folate 26, B12 of 1937. The patient is a poor historian and cannot really add much to the history. She also was noted to have worsening renal function with a creatinine about 3.6, believe earlier had been around 2.5. PAST MEDICAL HISTORY: Notable for the colon cancer diagnosed in about 2015, was 1 node positive. This was at [facility]. They had suggested adjuvant FOLFOX chemotherapy, but that did not occur. The patient was lost to follow up, then had seen Dr. Do recently in February to reestablish care. CAT scan showed abnormalities. A biopsy showed adenocarcinoma consistent with colon cancer recurrence. There were plans to be made for FOLFOX chemotherapy plus or minus other agents depending upon mutational status of things such as KRAS, BRAF, etc. The patient also has a history of bipolar and schizoaffective disorder. Also, history of hypertension, history of a thyroid goiter with resection. FAMILY HISTORY: Noncontributory. MEDICATIONS: At this time in the hospital currently include vancomycin, MiraLax, pantoprazole, Zosyn, Tylenol, hydrocodone, Zofran. PHYSICAL EXAMINATION: GENERAL: The patient appears her stated age. VITAL SIGNS: Height is 5 feet 4 inches, which is 162.6 cm; weight 155 pounds or 70.5 kilograms. Blood pressure 130/55, O2 sat 98%, respirations 18, pulse 76, afebrile at 97.8. NEUROLOGIC: The patient is somewhat hard to understand at times and is very focused and has a hard time focusing to answer questions. She is alert, awake and face is symmetric, moving her arms. LUNGS: Appear to be clear without significant rhonchi, [place] [address] CONSULTATION Name: CHARLOTTE CHAPPELL Room #: 447-P ADM IN M.R.#: [id number] Admission: 03/30/20 Attend Phys: Gerry Patiño MD Discharge: Date of : 48 Report #: [id number] wheezes. HEART: Regular rate. LYMPHATICS: No enlarged lymph nodes in the supraclavicular, cervical, axillary or inguinal region. ABDOMEN: Slightly obese. The patient says that her stomach is a little bit uncomfortable. EXTREMITIES: She has a large Jairon wrap type dressing on her right leg. ASSESSMENT AND PLAN: 1. Iron deficiency anemia. We will clarify with office whether the patient received iron or not. If not, we will plan to give here. Unclear, we will need to check her chart to see if she has had other workup or whether this is chronic in nature. There also may be a component of chronic kidney disease. May consider checking erythropoietin level. 2. Renal insufficiency. Recent creatinine had been around 2.5, now 3.6. Renal ultrasound showed no obstruction. Nephrology is following. 3. History of recently found metastatic colorectal cancer. No plans for outpatient modified FOLFOX chemotherapy. This has not begun yet is my understanding. 4. Trimalleolar ankle fracture. My earlier note had misunderstood and the patient has not had surgery yet, I believe it is planned for later this afternoon. 5. Bipolar and schizoaffective disorder, defer meds to others. 6. Hypertension, meds per others. 7. History of goiter and thyroid surgery. Defer to others. We will follow with you. <ELECTRONICALLY SIGNED> By: Kieran Boateng MD 04/02/20 0713 [id number] [id number] Kieran Boateng MD /nt
[2020-04-02 07:30] VITALS: BP 135/77
--- NOTE | 2020-04-02 10:13 | EKG ---
[facility] [place] [address] ELECTROCARDIOGRAM REPORT Name: CHARLOTTE CHAPPELL Room #: 447-P ADM IN M.R.#: [id number] Admission: 03/30/20 Attend Phys: Gerry Patiño MD Discharge: Date of : 48 Report #: [id number] THIS REPORT FOR: cc: Evaristo Carreon,Evaristo Turner,Tahir MANZO [facility] ~ THIS REPORT FOR: //name// [facility] Test Date: 2020-04-02 Test Time: 09:07:10 Pat Name: CHARLOTTE CHAPPELL Department: Room: [facility] Gender: F Group Therapy Counselor: REUBEN : 1950 Requested By: Lui Wahl Order Number: [id number] MD: Tahir Lino Measurements Intervals [place] Rate: 95 P: [place]: QRS: -55 QRSD: 98 T: 101 QT: 421 QTc: 530 Interpretive Statements Atrial fibrillation Left anterior fascicular block Abnormal R-wave progression, early transition LVH with secondary repolarization abnormality Prolonged QT interval Compared to ECG 04/01/2020 12:27:55 Left anterior fascicular block now present Left ventricular hypertrophy now present Early repolarization now present Prolonged QT interval now present Sinus rhythm no longer present Myocardial infarct finding no longer present Electronically Signed On 04-02-2020 10:13:04 ELECTROTYPE FINISHER by Tahir Lino [email or web address] <ELECTRONICALLY SIGNED> By: Tahir Lino MD, [facility] 04/02/20 1013 6 6 Tahir Lino MD, [facility] /EPI
--- NOTE | 2020-04-02 13:22 | NUR ---
ASSUMED CARE OF 0700. PT IS AX0 X3. PT IS HARD OF HEARING BUT IS STILL OREINT ON PT ABILITY. PT DENIES SOA AND NUMBNESS. PT HAS BRUISES THROUGHOUT BODY AND HAS SHALLOW BREATHING. SPOKE PT FAMILY ABOUT IMPORTANCE OF PUREED DIET. FAMILY WAS CONCERNED ON WHY PT IS ON PUREED DIET. EXPLAINED TO PT FAMILY THAT PUREED DIET WAS GIVEN DUE TO DIFFICULITY SWALLOWING PER SPEECH THERAPY. IV ON RIGHT HAND SHOWS NO SIGNS OF REDNESS. BM X2 DURING SHIFT SO FAR. FLU TESTING WAS COLELCTED AND WAS GIVEN TO LAB. FALL PRECAUTION. CALL LIGHT WITHIN REACH. PT COMPLAINS OF PAIN AND WAS GIVEN MEDICATION
--- NOTE | 2020-04-02 14:54 | 2DMMODE ---
[facility] [place] [address] 2 D/M-MODE ECHOCARDIOGRAM Name: CHARLOTTE CHAPPELL Room #: 449-I ADM IN M.R.#: [id number] Admission: 03/30/20 Attend Phys: Gerry Patiño MD Discharge: Date of : 48 Report #: [id number] THIS REPORT FOR: cc: Evaristo Carreon,Tahir Anderson MD [facility] ~ APPROVED REPORT Study performed: 04/02/2020 14:07:59 EXAM: Comprehensive 2D, Doppler, and color-flow Echocardiogram Patient Location: Bedside Room #: [facility] Status: routine BSA: 1.76 HR: 100 bpm BP: 135/77 mmHg Rhythm: Atrial Fibrillation Other Information Study Quality: Adequate Indications Atrial Fibrillation Hypertension/HDD 2D Dimensions RVDd: 38.41 mm IVSd: 8.71 (7-11mm) LVOT Diam: 20.28 (18-24mm) LVDd: 41.16 mm PWd: 8.71 (7-11mm) Ascending Ao: 24.63 (22-36mm) LVDs: 30.63 (25-40mm) Aortic Root: 24.44 mm IVC: 16.00 mm Volumes Left Atrial Volume (Systole) Single Plane 4CH: 44.65 mL Single Plane 2CH: 38.61 mL LA ESV Index: 26.00 mL/m2 Aortic Valve AoV Peak Remington.: 1.54 m/s AO Peak Gr.: 9.48 mmHg LVOT Max P.83 mmHg LVOT Max V: 0.98 m/s BRONSON Vmax: 2.05 cm2 [facility] [address] [place] [address] 2 D/M-MODE ECHOCARDIOGRAM Name: CHARLOTTE CHAPPELL Room #: 449-I ADM IN Nusrat.#: [id number] Admission: 03/30/20 Attend Phys: Gerry Patiño MD Discharge: Date of : 48 Report #: [id number] Pulmonary Valve PV Peak Remington.: 1.03 m/s PV Peak Gr.: 4.25 mmHg Tricuspid Valve TR Peak Remington.: 2.47 m/s TR Peak Gr.: 24.51 mmHg PA Pressure: 30.00 mmHg Left Ventricle The left ventricle is normal size. There is normal LV segmental wall motion. There is normal left ventricular wall thickness. The left ventricular systolic function is normal. The left ventricular ejection fraction is within the normal range. LVEF is 55-60%. This study is not technically sufficient to allow evaluation of the LV diastolic function due to atrial fibrillation. Right Ventricle The right ventricle is normal size. The right ventricular systolic function is normal. Atria The left atrium size is normal. The right atrium size is normal. Aortic Valve The aortic valve is normal in structure. No aortic regurgitation is present. There is no aortic valvular stenosis. Mitral Valve The mitral valve is normal in structure. Mild mitral regurgitation. No evidence of mitral valve stenosis. Tricuspid Valve The tricuspid valve is normal in structure. There is mild tricuspid regurgitation. Estimated PAP 30 mmHg. There is no pulmonary hypertension. Pulmonic Valve The pulmonary valve is normal in structure. Mild pulmonic regurgitation. Great Vessels The aortic root is normal in size. IVC is normal in size and collapses >50% with inspiration. [facility] [address] [place] [address] 2 D/M-MODE ECHOCARDIOGRAM Name: CHARLOTTE CHAPPELL Room #: 449-I ADM IN ..#: [id number] Admission: 03/30/20 Attend Phys: Gerry Patiño MD Discharge: Date of : 48 Report #: [id number] Pericardium There is no pericardial effusion. <Conclusion> Normal left atrial size, wall thickness and systolic function ejection fraction 60% Normal right ventricular size and function No significant valvular dysfunction detected Mild tricuspid valve insufficiency Pulmonary artery systolic pressure estimated at 30 mmHg No pericardial effusion <ELECTRONICALLY SIGNED> By: Tahir Lino MD, FACC 04/02/204 53 53 Tahir Lino MD, FACC /INF
--- NOTE | 2020-04-02 15:15 | NUR ---
ON-GOING ASSESSMENT: PT WAS MOVED TO 4S S/P ORIF RIGHT ANKLE. PT IS FROM [facility]. PT HAD NEW DIAGNOSIS FOR A FIB. PT WAS TRANSFERRED TO TODAY. CM SPOKE WITH TONY ERNST AT [facility] WHO REPORTS TO CONTACT HER ONCE PATIENT IS MEDICALLY STABLE FOR DISCHARGE AT [phone]. CM FAXED UPDATED CLINICAL TO [facility] TO UPDATE THEM. CM WILL CONTINUE TO FOLLOW TO ASSIST NEEDED.
--- NOTE | 2020-04-02 15:52 | EKG ---
[facility] [place] [address] ELECTROCARDIOGRAM REPORT Name: CHARLOTTE CHAPPELL Room #: 449-I ADM IN M.R.#: [id number] Admission: 03/30/20 Attend Phys: Gerry Patiño MD Discharge: Date of : 48 Report #: [id number] THIS REPORT FOR: cc: Evaristo Carreon,Evaristo Deleon,Carlos Horn MD [facility] THIS REPORT FOR: //name// [facility] Test Date: 2020-04-01 Test Time: 12:27:55 Pat Name: CHARLOTTE CHAPPELL Department: Room: [facility] Gender: F Transformation Consultant: HEATH : 1950 Requested By: Gerry Patiño Order Number: [id number] MD: Carlos See Measurements Intervals [place] Rate: 91 P: 67 IA: 128 QRS: -64 QRSD: 96 T: 86 QT: 397 QTc: 489 Interpretive Statements Atrial fibrillation Abnormal R-wave progression, late transition Left anterior hemiblock Compared to ECG 04/01/2020 12:23:57 No significant change was found Electronically Signed On 04-02-2020 15:51:59 IRRIGATOR VALVE PIPE by Carlos See [email or web address] <ELECTRONICALLY SIGNED> By: Carlos See MD, [facility] 04/02/20 1551 1227 1227 Carlos See MD, [facility] /EPI
--- NOTE | 2020-04-02 16:15 | NUR ---
ASSUMED CARE OF PATIENT AT APPROX. 1400. PATIENT TRANSFERRED FROM ON TELEMETRY D/T NEW ONSET OF AFIB. PATIENT HAD AN ECHOCARDIAGRAM TODAY. WILL HAVE LABS DRAWN LATER. PATIENT IS ABLE TO MAKE TOILETING NEEDS KNOWN AND USING BEDPAN. BEDBATH TODAY AND TOLERATED WELL. IVF AND ABX INFUSING W NO ISSUES. PATIENT VOICES PAIN AND IS BEING GIVEN PRN ANALGESICS PER ORDERS. PATIENT IS BEING REPOSITIONED Q2 HRS. CURRENTLY RESTING IN BED W EYES CLOSED AND VOICES NO NEEDS. WILL CONTINUE TO MONITOR AND FOLLOW PLAN OF CARE
--- NOTE | 2020-04-02 17:53 | NUR ---
PATIENT WAS FOUND UPON ROUNDS WITH IV OUT. IV WAS ATTEMPTED ON R FOREARM BUT UNSUCCESSFUL. IV TEAM PAGED NOW. ZOSYN AND FLUIDS NOT INFUED D/T RNA
[2020-04-02 19:45] VITALS: BP 121/62
--- NOTE | 2020-04-03 04:47 | NUR ---
Pt. rested quietly at intervals during the night when checked on during frequent rounds. She offers no c/o pain. Has been useing the bedpan and voiding without difficulty. Cast dressing to her right lower extremity is dry and intact. Bed alarm is on.
[2020-04-03 06:00] LABS: HEMATOCRIT 28.7 % (37.0-47.0); HEMOGLOBIN 8.7 gm/dL (12.0-15.0); MCH 24.2 pg (26.0-34.0); MCHC 30.3 g/dL (28.0-37.0); MCV 79.8 fL (80.0-100.0); RBC 3.6 mil/uL (4.20-5.00); RDW 25.8 % (10.5-14.5); WBC 10.3 thou/uL (4.0-11.0)
[2020-04-03 06:32] LABS: ALBUMIN 1.8 g/dL (3.4-5.0); CALCIUM 8.7 mg/dL (8.5-10.1); CREATININE 3.3 mg/dL (0.6-1.0); PHOSPHORUS 3.5 mg/dL (2.5-4.9); POTASSIUM 3.8 mmol/L (3.5-5.1)
[2020-04-03 07:40] VITALS: BP 129/57
--- NOTE | 2020-04-03 14:42 | NUR ---
ASSUMED PT CARE THIS AM. PT VSS, COMPLAINED OF PAIN EARLY IN THE SHIFT BUT MANAGED WITH MEDICATION AND NO FURTHER COMPLAINTS OF PAIN. PT CALLS OUT WHEN NEEDED, BUT IS FORGETFUL ABOUT HOW TO USE THE CALL LIGHT. PT SITTING IN CHAIR, ENCOURAGED TO CHANGE POSITION BUT NOT AGREEABLE. PT DRINKING THICKENED LIQUIDS WELL. IV PATENT. PT USES BEDPAN WHEN IN BED AND BEDSIDE COMMODE WHEN IN CHAIR. PIVOTS TO AVOID BEARING WEIGHT ON RIGHT LEG. PT RIGHT LEG EDEMATOUS. PT EATING WELL. ON TELE. MEDS TAKEN CRUSHED IN APPLESAUCE.
[2020-04-03 15:52] VITALS: BP 118/61
[2020-04-03 19:56] VITALS: BP 126/68
--- NOTE | 2020-04-04 05:30 | NUR ---
Assumed pt care at 1900. Pt A/OX2-3,able to make needs known thoigh doesn't always remember to use call light and will yell for help.Pt is [place] too. VSS. Denies pain on assessment, up with AX1/RW to bedside commode, pivots. NWBT RLE. CMS intact to RLE, cast in place. SR on telemetry and sometimes irregular/regular. IVF infusing via Right wrist w/o problems. Pt voiding per bedpan as well;had 2 loose dark stools. Fall precautions in place,resting w/o distress noted oxygen in place at 2L/NC.
[2020-04-04 06:37] LABS: HEMATOCRIT 25.4 % (37.0-47.0); HEMOGLOBIN 7.9 gm/dL (12.0-15.0); MCH 24.3 pg (26.0-34.0); MCHC 30.9 g/dL (28.0-37.0); MCV 78.7 fL (80.0-100.0); RBC 3.23 mil/uL (4.20-5.00); RDW 26.7 % (10.5-14.5); WBC 12.7 thou/uL (4.0-11.0)
[2020-04-04 06:51] LABS: ALBUMIN 1.8 g/dL (3.4-5.0); CALCIUM 8.1 mg/dL (8.5-10.1); PHOSPHORUS 3.2 mg/dL (2.5-4.9); POTASSIUM 3.6 mmol/L (3.5-5.1)
[2020-04-04 07:30] VITALS: BP 132/64
--- NOTE | 2020-04-04 14:45 | NUR ---
ASSUMED PT CARE THIS AM. PT VSS, A&OX2. PT HAS NO COMPLAINTS OF PAIN. PT HAS GOOD APPETITE, FLUIDS ENCOURAGED. PT CALLS WHEN SHE NEEDS TO URINATE MOST OF THE TIME, AND USES A BED LOBATO TO DO SO. HOWEVER, PT HAS HAD PERIODS OF INCONTINENCE TODAY. PT HAS HAD MANY SOFT BOWEL MOVEMENTS TODAY, AND DOES NOT CALL WHEN SHE NEEDS TO HAVE A BOWEL MOVEMENT. RIGHT LEG EDEMATOUS. IV PATENT, FLUIDS INFUSING. MEDS TAKEN CRUSHED IN APPLESAUCE. PT ON THICKENED LIQUIDS. ON TELE.
[2020-04-04 15:44] VITALS: BP 140/73
[2020-04-04 19:02] VITALS: BP 141/69
[2020-04-05 06:22] LABS: HEMATOCRIT 27.1 % (37.0-47.0); HEMOGLOBIN 8.1 gm/dL (12.0-15.0); MCH 23.8 pg (26.0-34.0); MCHC 29.9 g/dL (28.0-37.0); MCV 79.5 fL (80.0-100.0); RBC 3.4 mil/uL (4.20-5.00); RDW 27.2 % (10.5-14.5)
[2020-04-05 06:37] LABS: ALBUMIN 1.6 g/dL (3.4-5.0); CALCIUM 8.7 mg/dL (8.5-10.1); CREATININE 2.8 mg/dL (0.6-1.0); PHOSPHORUS 3.6 mg/dL (2.5-4.9); POTASSIUM 3.2 mmol/L (3.5-5.1)
[2020-04-05 07:03] VITALS: BP 126/69
--- NOTE | 2020-04-05 12:05 | NUR ---
Received awake on bed. Due medications given as prescribed, able to swallow meds w/o difficulty. On room air. Vital signs stable. On telemetry; no complains and signs of chest pain, crushing sensation and heaviness. On O2 at 2lpm via nasal cannula. On pureed diet- assisted in eating and drinking; no nausea, no vomiting and no abdominal pain. Still a/w stool sample- possible Cdiff. With on and off incontinence; checked and changed as needed. With d5 at 80cc/hr, infusing well at R hand; dressing C/D/I. With simple cast at R leg- from fall at home; C/D/I; kept elevated. Falls bundle in place. Assisted in ADLs. Complained of pain, due PRN pain meds given as prescribed. Turned on her sides regularly. Pt seen and examined by ST coyne, evaluated and said pt can be progressed to Mechanically altered diet, thin liquids for lunch. To continue monitoring patient.
[2020-04-05 15:46] VITALS: BP 126/69
[2020-04-05 15:51] VITALS: BP 133/67
--- NOTE | 2020-04-05 16:01 | NUR ---
CARE TEAM INDICATED PROBABLE DC BACK TO [facility] TOMORROW Sunday04/06/20. CM CALLED AND SPOKE WITH PT'S DTR/GUARDIAN. SHE IS AWARE AND AGREEABLE. CM TO FACILITATE DC BACK TO FACILITY TOMORROW.
[2020-04-05 18:53] LABS: CALCIUM 9.1 mg/dL (8.5-10.1); CREATININE 2.7 mg/dL (0.6-1.0); POTASSIUM 3.7 mmol/L (3.5-5.1)
[2020-04-05 19:48] VITALS: BP 148/79
--- NOTE | 2020-04-06 04:53 | NUR ---
ASSUMED CARE OF PT AT 1900HRS. PT AOX1-2 AND LETS NEEDS BE KNOWN. FALL PRECAUTION IN PLACE. PT REPORTED PAIN AND WAS TREATED WITH PRN PAIIN MEDS. PT IS ON AND OFF INCONTINENT. IVF CONTINUED. PT WAS ABLE TO GET COMFORTABLE AND SLEEP PART OF THE SHIFT. VSS AND NO S/S OF ACUTE DISTRESS. WILL CONTINUE TO MONITOR.
[2020-04-06 06:53] LABS: HEMOGLOBIN 7.6 gm/dL (12.0-15.0); MCHC 30.4 g/dL (28.0-37.0); MCV 78.9 fL (80.0-100.0); RBC 3.17 mil/uL (4.20-5.00); RDW 27.1 % (10.5-14.5); WBC 12.5 thou/uL (4.0-11.0)
[2020-04-06 07:14] LABS: ALBUMIN 1.6 g/dL (3.4-5.0); CALCIUM 8.8 mg/dL (8.5-10.1); CREATININE 2.6 mg/dL (0.6-1.0); MAGNESIUM 1.7 mg/dL (1.8-2.4); PHOSPHORUS 2.6 mg/dL (2.5-4.9); POTASSIUM 3.8 mmol/L (3.5-5.1)
[2020-04-06 07:24] VITALS: BP 126/62
--- NOTE | 2020-04-06 08:21 | HC ---
[facility] [place] [address] CONSULTATION Name: CHARLOTTE CHAPPELL Room #: 449-I ADM IN M.R.#: [id number] Admission: 03/30/20 Attend Phys: Gerry Patiño MD Discharge: Date of : 48 Report #: [id number] THIS REPORT FOR: cc: Evaristo Carreon,Evaristo Rogers,Rajesh Gann MD ~ REASON FOR CONSULTATION: Elevated creatinine. REASON FOR PRESENTATION: Post fall. REASON FOR CONSULTATION: Acute kidney injury. HISTORY OF PRESENT ILLNESS: Unable to obtain given the patient's current mental status. She is a very poor historian with history of schizophrenia, dementia. She was sent from her nursing facility after a fall and was found to have a trimalleolar fracture of the right ankle. I was consulted to manage her acute kidney injury as she was found to have an elevated creatinine at 4.2. I had evaluated this patient back in 2019 for yet another episode of acute kidney injury and at that time, her creatinine had settled at around 2.0. Diagnostic workup at that time revealed that the patient had an atrophic kidney with cystic changes of the right kidney. She had an acute kidney injury in 09/2018 due to gram-negative bacteremia. Her discharge creatinine was around 2.0. When she presented yesterday, her creatinine was around 4.4 mandating a Nephrology consultation. ALLERGIES: None. MEDICATIONS: From her nursing facility included the followin. Amoxicillin. 2. Trazodone. 3. Aripiprazole. 4. Levothyroxine. 5. Valproic acid. 6. Calcium carbonate. REVIEW OF SYSTEMS: Unobtainable given the patient's current mental status. SOCIAL HISTORY: Unobtainable given the patient's current mental status. FAMILY HISTORY: Unobtainable given the patient's current mental status. PAST MEDICAL AND SURGICAL HISTORY: Obtained from the medical chart. 1. Schizophrenia. 2. Hypothyroidism. [facility] [address] [place] [address] CONSULTATION Name: CHARLOTTE CHAPPELL Room #: 449-I [facility] IN [facility]#: [id number] Admission: 03/30/20 Attend Phys: Gerry Patiño MD Discharge: Date of : 48 Report #: [id number] PHYSICAL EXAMINATION: GENERAL: She is confused, disoriented. VITAL SIGNS: Temperature 36.4, pulse rate is 85, respiratory rate is 18, blood pressure is 140/67. HEAD AND NECK: No jugular venous distention. Dry mucous membrane. CHEST: No crackles. CARDIOVASCULAR: No rub. ABDOMEN: Soft, nontender. LOWER EXTREMITIES: There is a cast applied over the right lower extremity. LABORATORY DATA: Hemoglobin 8.6. Serum chemistry showed a sodium of 143, potassium of 3.5, anion gap of 18, BUN of 55, creatinine of 4.2. Chest x-ray: Mild interstitial infiltrates bilaterally. Renal ultrasound revealed multiple cysts arising from the right kidney with progression from the last ultrasound. The left kidney was completely atrophic. IMPRESSION AND PLAN: 1. Acute kidney injury. 2. Chronic kidney disease. 3. Cystic kidney disease changes. 4. Atrophic left kidney. 5. Post fall with ankle fracture. 6. Anemia. 7. Schizophrenia. 8. Bipolar disorder. 9. Leukocytosis. 10. We will start the appropriate investigation for the patient's acute kidney injury. She will need repeat labs frequently. 11. Continue with IV fluid. 12. Avoid any nephrotoxic medications. 13. Appropriate antibiotic initiated by the primary team. 14. The patient has an atrophic left kidney with multiple cysts on the right kidney. This highly suggests chronic kidney disease. Baseline creatinine is around 2.0 and was around 2.0 when the patient was discharged from the hospital back in 2019. She is not a candidate for any heroic or invasive measures from our side. 15. Continue to monitor daily electrolytes, urine output. [address] [address] CONSULTATION Name: CHARLOTTE CHAPPELL Room #: 449-I [facility] IN M.R.#: [id number] Admission: 03/30/20 Attend Phys: Gerry Patiño MD Discharge: Date of : 48 Report #: [id number] 16. Expect some improvement of her renal function back to her baseline. We will continue to follow. <ELECTRONICALLY SIGNED> By: Rajesh Beavers MD 04/06/20 0821 1 47 Rajesh Beavers MD /nt
--- NOTE | 2020-04-06 10:56 | NUR ---
ASSUMED PT CARE THIS AM. PT VSS, A&OX2. PT TOOK MEDS WELL. IV PATENT. PER , FLUIDS DISCONTINUED. PT USES BED LOBATO WHEN IN BED, BEDSIDE COMMODE WHEN IN CHAIR. SWELLING OF RIGHT LEG, US ORDERED. NO SKIN ISSUES APPARENT. PT ON TELE. PAIN MEDS GIVEN BEFORE SHIFT CHANGE THIS AM.
--- NOTE | 2020-04-06 12:03 | NUR ---
PATIENT WAS PLEASANT AND COOPERATED WELL WITH STAFF. PATIENT'S RIGHT LEG IS STILL SWOLLEN AROUND THE CAST. PATIENT DOES NOT STATE THAT THERE IS A LOSS OF SENSATION OF THE RIGHT LOWER EXTREMITY AND IS ABLE TO SCIENTIFIC AIDE HER TOES.
--- NOTE | 2020-04-06 12:19 | NUR ---
I have reviewed the student documentation.
[2020-04-06 13:53] LABS: HEMATOCRIT 26.1 % (37.0-47.0); HEMOGLOBIN 7.9 gm/dL (12.0-15.0); MCH 23.9 pg (26.0-34.0); MCHC 30.2 g/dL (28.0-37.0); MCV 79.3 fL (80.0-100.0); RBC 3.3 mil/uL (4.20-5.00); RDW 27.3 % (10.5-14.5); WBC 13.1 thou/uL (4.0-11.0)
[2020-04-06] MEDS ORDERED: CEFPODOXIME PR200 M1 PO (14:20)
[2020-04-06 15:08] VITALS: BP 152/93
--- NOTE | 2020-04-06 15:21 | NUR ---
PT DISCHARGING TODAY TO [facility] FOR SKILLED STAY FAXED DC ORDERS/SUMMAARY TO FACILITY SPOKE WITH [facility]) AND THEY DO NOT HAVE TRANSPORTATION SO I ARRANGED TRANSPORT WITH [facility] FOR [phone] TODAY. NOTIFIED PT'S DTR AND SHE WILL BRING PT SOME CLOTHES PRIOR TO DC. NOTIFIED UNIT AND CHART COPY PER US. RN TO CALL REPORT TO [phone].
--- NOTE | 2020-04-06 16:07 | NUR ---
CARE TEAM INDICATED THAT PT IS MEDICALLY STABLE TO DISCHARGE BACK TO [facility] THIS DAY. CHART COPY ORDERED. ORDERS FAXED. [facility] TRANSPORT ARRAGNED FOR [id number]. PT AND DTR ARE AWARE AND AGREEABLE. NO OTHER CM INTERVENTION INDICATED. CASE CLOSED.
--- NOTE | 2020-04-07 15:29 | NUR ---
STAFF AT [facility] CALLED AND INDICATED THAT THEY NEEDED INFO ON WHO/WHEN/WHERE PT WAS TO HAVE FOLLOW UP [facility]. THEY INDICATED IT HADN'T BEEN IN THE DC PAPERWORK. CM INDICATED FOLLOW UP IN 10-14 DAYS AT [facility] WITH DR. COOPER. CM PROVIDED PHONE NUMBER.
== END 2020-04-06 17:04 | DRG 853 ==
LOC: ER 09:22 → 2N 12:41 → ER 12:41 → 2N 12:42 → 4S 04-01 16:01 → 4W 04-02 14:00
PROVIDERS: Emergency Medicine; Hospitalist; Internal Medicine; Internal Medicine Nephrology; Nurse Practitioner; ADMIT Internal Medicine; ATTEND Internal Medicine
PROC: 2W3LX1Z Immobilization of Right Lower Extremity using Splint (ICD-10-PCS; principal; 2020-03-30)
PROC: 0SSF0ZZ Reposition Right Ankle Joint, Open Approach (ICD-10-PCS; principal; 2020-03-30)
PROC: 30233N1 Transfusion of Nonautologous Red Blood Cells into Peripheral Vein, Percutaneous Approach (ICD-10-PCS; principal; 2020-03-30)
PROC: 0QSJ04Z Reposition Right Fibula with Internal Fixation Device, Open Approach (ICD-10-PCS; 2020-04-01)
PROC: 0QSG04Z Reposition Right Tibia with Internal Fixation Device, Open Approach (ICD-10-PCS; 2020-04-01)
DX: A41.9 Sepsis, unspecified organism (principal); J18.9 Pneumonia, unspecified organism; G92 Toxic encephalopathy; E87.0 Hyperosmolality and hypernatremia; N18.5 Chronic kidney disease, stage 5; N17.9 Acute kidney failure, unspecified; I12.0 Hypertensive chronic kidney disease with stage 5 chronic kidney disease or end stage renal disease; C18.9 Malignant neoplasm of colon, unspecified; S82.851A Displaced trimalleolar fracture of right lower leg, initial encounter for closed fracture; F31.9 Bipolar disorder, unspecified; F03.90 Unspecified dementia, unspecified severity, without behavioral disturbance, psychotic disturbance, mood disturbance, and anxiety; D47.3 Essential (hemorrhagic) thrombocythemia; E03.9 Hypothyroidism, unspecified; D50.9 Iron deficiency anemia, unspecified; I48.91 Unspecified atrial fibrillation; E87.6 Hypokalemia; Z20.828 Contact with and (suspected) exposure to other viral communicable diseases; Z23 Encounter for immunization; Z87.891 Personal history of nicotine dependence; Z85.038 Personal history of other malignant neoplasm of large intestine; Z92.21 Personal history of antineoplastic chemotherapy; Z47.89 Encounter for other orthopedic aftercare; Z79.899 Other long term (current) drug therapy; W18.39XA Other fall on same level, initial encounter; Y93.89 Activity, other specified; Y92.89 Other specified places as the place of occurrence of the external cause; Y99.8 Other external cause status
CPT/HCPCS: 10045; 10081; 10100; 50010; 50101; 50341; 50343; 50386; 51122; 51131; 51412; 56525; 56667; 57091; 57180; 62110; 62900; 64039; 64043; 70005

== ENCOUNTER 2020-04-13 10:17 | Inpatient (IN) | payer OTHER ==
[~2020-04-13] VITALS: Ht 165.1 cm; Wt 77.7 kg
--- NOTE | ~2020-04-13 | EMS ---
[facility] [address] [place] [address] EMS Patient Care Report Name: CHARLOTTE CHAPPELL Room #: REG JESSICA Topete#: [id number] Admission: 04/13/20 Attend Phys: Discharge: Date of : 48 Report #: [id number] THIS REPORT FOR: //name// Report Transmitted: 04/13/2020 10:55 EMS Care Summary [facility] MED-ACT Incident [id number] @ 04/13/2020 09:23 Incident Location [address] [place] [address] Patient CHARLOTTE HCAPPELL Female, 69 Years 1950 Patient Address [address] [place] [address] Patient History Behavioral/Psychiatric Disorder,Dementia,Colon Cancer,Urinary Tract Infection (UTI),Bipolar II Disorder,Hypothyroidism,Back Pain (Chronic), Patient Allergies No known allergies, Patient Medications Oxycodone, Aripiprazole, Clonidine, Levothyroxine, Abilify, Trazodone, Morphine, Amlodipine, Chief Complaint AMS Disposition Transported No Lights/[place] Dispatch Reason Breathing Problem Transported To [facility] Narrative History-Pt was at the cancer center today for a consult for colorectal [facility] [address] [place] [address] EMS Patient Care Report Name: CHARLOTTE CHAPPELL Room #: ANGUS Topete#: [id number] Admission: 04/13/20 Attend Phys: Discharge: Date of : 48 Report #: [id number] cancer. Pt was lethargic and had an AMS so 911 was called. Staff at the Cancer center stated that they were told that the pt had AMS yesterday also. Staff and daughter were un aware if the pt had gotten her meds today. Pt takes morphine and oxycodone Assessment-Neuros: Pt was verbal and alert to person and lethargic. HEENT: eyes JESSICA @ 2mm, after narcan eyes 4mm. Rendered Tx-Vitals taken and monitored, EKG, 12 lead, IV attempted times 2 without success, IN narcan 0.5 mg given with positive response to spontaneous. Destination-Pt was in a wheel chair upon our arrival. Pt was wheel out to the hallway where the pt was moved to the cot via carry then secured with 3 straps and shoulder straps then moved to the ambulance. Pt was put in semi-fowlers position. Pt was transported to [facility] and taken to room 9 where the pt was moved to the bed via sheet drag. Care was transferred to staff. Initial Vitals @09:50P: 101,SpO2: 98,GA Suspected: false @10:02P: 105,R: 10,EtCO2: 51,SpO2: 85, @PTAP: 108,R: 10,BP: 110/67,Pain: 0/10,GCS: 13,SpO2: 95,Revised Trauma: 12, @09:38P: 109,R: 10,BP: 110/71,Pain: 0/10,GCS: 13,SpO2: 96,Revised Trauma: 12, @10:04P: 107,R: 12,BP: 126/77,Pain: 0/10,GCS: 13,Temp: 96.7F,Glucose: 115,EtCO2: 59,SpO2: 96,Revised Trauma: 12, @10:12P: 102,R: 15,BP: 129/56,Pain: 0/10,GCS: 13,EtCO2: 49,SpO2: 95,Revised Trauma: 12, Assessments @09:37MENTAL:Confused,Person Oriented,SKIN:HEENT:Eyes: Left Pupil: 2-mm,Eyes: Right Pupil: 2-mm,Head/Face: No Abnormalities,Neck/Airway: No Abnormalities,LUNG SOUNDS:ABDOMEN:PELVIS//GI:No Abnormalities,EXTREMITIES:Left Arm: No Abnormalities,Right Arm: No Abnormalities,Left Leg: No Abnormalities,Right Leg: No Abnormalities,PULSE:Radial: 2+ Normal,NEURO:No Abnormalities, Impression Overdose - Synthetic narcotics Procedures @09:36Surgical Mask on PatientResponse: Unchanged@09:5012-Lead ECGResponse: UnchangedSucceeded@10:03Naloxone - 0.5 Milligrams (mg) - IntranasalResponse: Improved@09:57Saline Lock 0cc (20 ga) Site: Antecubital-LeftResponse: UnchangedFailed@10:00Saline Lock 0cc (20 ga) Site: Forearm-RightResponse: UnchangedFailed@PTAOxygen FlowRate: 2 Device: Nasal Cannula (NC) Response: UnchangedSucceeded@09:56Oxygen FlowRate: 2 Device: CO2 Nasal Cannula Response: UnchangedSucceeded Timeline ACQUISITION SPECIALIST,Oxygen FlowRate: 2 Device: Nasal Cannula (NC) Response: UnchangedSucceeded, [facility] [address] [place] [address] EMS Patient Care Report Name: CHARLOTTE CHAPPELL Room #: ANGUS Topete#: [id number] Admission: 04/13/20 Attend Phys: Discharge: Date of : 48 Report #: [id number] ACQUISITION SPECIALIST,BP: 110/67 M,PULSE: 108,RR: 10 R,SPO2: 95 Ox,ETCO2: ,BG: ,PAIN: 0,GCS: 13, 09:22,Call Received 09:22,Psap Call 09:23,Dispatched 09:25,En Route 09:31,On Scene 09:35,At Patient 09:36,Surgical Mask on Patient,Response: Unchanged 09:38,BP: 110/71 M,PULSE: 109,RR: 10 R,SPO2: 96 Ox,ETCO2: ,BG: ,PAIN: 0,GCS: 13, 09:50,12-Lead ECG,Response: UnchangedSucceeded, 09:50,BP: / M,PULSE: 101,RR: R,SPO2: 98 Ox,ETCO2: ,BG: ,PAIN: ,GCS: , 09:56,Oxygen FlowRate: 2 Device: CO2 Nasal Cannula Response: UnchangedSucceeded, 09:57,Saline Lock 0cc 20 ga Site: Antecubital-Left,Response: UnchangedFailed, 10:00,Saline Lock 0cc 20 ga Site: Forearm-Right,Response: UnchangedFailed, 10:02,BP: / M,PULSE: 105,RR: 10 R,SPO2: 85 Ox,ETCO2: 51 ,BG: ,PAIN: ,GCS: , 10:03,Depart Scene 10:03,Naloxone - 0.5 Milligrams (mg) - Intranasal,Response: Improved 10:04,BP: 126/77 M,PULSE: 107,RR: 12 R,SPO2: 96 Ox,ETCO2: 59 ,B,PAIN: 0,GCS: 13, 10:12,BP: 129/56 M,PULSE: 102,RR: 15 R,SPO2: 95 Ox,ETCO2: 49 ,BG: ,PAIN: 0,GCS: 13, 10:13,At Destination 10:45,Call Closed Disclaimer v1.1 Copyright 2020 [employer] This EMS Care Summary contains data elements from the applicable legal record (which may be displayed differently). It is designed to provide pertinent information for the following purposes: continuity of care, clinical quality, and state data reporting. The complete legal record is available to ED staff and administrators of the receiving hospital in [facility]'s Patient Tracker. All data is provided "as is."
[~2020-04-13 10:17] MED LIST changes: +CATAPRES0.1 MG PO; +CEFPODOXIME PR200 M1 PO; +MIRALAX119 GM PO; +MS CONTIN15 MG PO; +NORVASC 2.5 MG2.5 M1 PO
[2020-04-13 10:21] VITALS: BP 145/82
[2020-04-13 10:48] LABS: HEMATOCRIT 30.6 % (37.0-47.0); MCH 24.2 pg (26.0-34.0); MCHC 29.5 g/dL (28.0-37.0); MCV 82.1 fL (80.0-100.0); PLATELET COUNT 284 thou/uL (150-400); RBC 3.73 mil/uL (4.20-5.00)
[2020-04-13 11:08] LABS: ABSOLUTE NEUTROPHILS 9.1 thou/uL (1.4-8.2)
[2020-04-13 11:09] LABS: ANISOCYTOSIS 2+; HYPOCHROMASIA 2+; PLATELET ESTIMATE NORMAL
[2020-04-13 11:12] LABS: ANION GAP 14 mmol/L (7-16); BUN 58 mg/dL (7-18); CALCIUM 11.1 mg/dL (8.5-10.1); CHLORIDE 117 mmol/L (98-107); CO2 24 mmol/L (21-32); CREATININE 4.5 mg/dL (0.6-1.0); GLUCOSE 110 mg/dL (74-106); POTASSIUM 5.7 mmol/L (3.5-5.1); SODIUM 155 mmol/L (136-145)
[2020-04-13 11:22] LABS: MAGNESIUM 2.7 mg/dL (1.8-2.4); TROPONIN-I <0.06 ng/mL (<0.06)
[2020-04-13] MEDS ORDERED: CALCIUM500 MG PO (12:16)
[2020-04-13] MEDS ORDERED: CATAPRES0.1 MG PO (12:16)
[2020-04-13] MEDS ORDERED: SILTUSSIN100 MG/5 M PO (12:17)
[2020-04-13] MEDS ORDERED: MORPHINE SULFAT15 M3 PO (12:18)
[2020-04-13] MEDS ORDERED: REQUIP 0.25 M0.25 M1 PO (12:19)
[2020-04-13] MEDS ORDERED: VALPROIC A250 MG/51 PO (12:20)
[2020-04-13] MEDS ORDERED: TRAZODONE HCL100 MG PO (12:21)
[2020-04-13 12:26] LABS: URINE BILIRUBIN NEGATIVE (Negative); URINE BLOOD TRACE (Negative); URINE CLARITY CLEAR; URINE COLOR YELLOW; URINE GLUCOSE-RANDOM* 1+ (Negative); URINE KETONES NEGATIVE (Negative); URINE LEUKOCYTES-REFLEX NEGATIVE (Negative); URINE NITRITE-REFLEX NEGATIVE (Negative); URINE PROTEIN (DIPSTICK) TRACE (Negative); URINE UROBILINOGEN 0.2 E.U./dl (0.2-1.0)
[2020-04-13 12:40] LABS: AMP/METHAMP Negative (Negative); BARBITURATES Negative (Negative); BENZODIAZEPINES Negative (Negative); COCAINE Negative (Negative); METHADONE Negative (Negative); OPIATES POSITIVE (Negative); PCP Negative (Negative)
--- NOTE | 2020-04-13 13:17 | EKG ---
[facility] [place] [address] ELECTROCARDIOGRAM REPORT Name: MISTICHARLOTTE Room #: REG [facility]#: [id number] Admission: 04/13/20 Attend Phys: Discharge: Date of : 48 Report #: [id number] THIS REPORT FOR: cc: Evaristo Carreon,Tahir Anderson MD [facility] ~ THIS REPORT FOR: //name// [facility] ED Test Date: 2020-04-13 Test Time: 10:26:17 Pat Name: CHARLOTTE CHAPPELL Department: Room: Gender: F Ground Surveillance Systems Operator: ALVARO : 1950 Requested By: Mane Dubon Order Number: [id number] MD: Tahir Lino Measurements Intervals Eleva Rate: 106 P: 43 CT: 120 QRS: -57 QRSD: 88 T: 75 QT: 346 QTc: 460 Interpretive Statements Sinus tachycardia Atrial premature complex Abnormal R-wave progression, late transition Left ventricular hypertrophy Compared to ECG 04/02/2020 09:07:10 Atrial premature complex(es) now present Atrial fibrillation no longer present Early repolarization no longer present Prolonged QT interval no longer present Electronically Signed On 04-13-2020 13:17:13 HAND BINDER CUTTER by Tahir Lino [email or web address] <ELECTRONICALLY SIGNED> By: Tahir Lino MD, FACC 04/13/20 1317 1026 1026 Tahir Lino MD, [facility] /EPI
--- NOTE | 2020-04-13 14:16 | NUR ---
SPOKE WITH DAUGHTER (GUARDIAN) PRABHU ERNST PLAN OF CARE UPDATE GIVEN.
[2020-04-13 14:24] VITALS: BP 112/54
[2020-04-13 14:35] VITALS: BP 116/54
[2020-04-13 16:32] VITALS: BP 125/62
--- NOTE | 2020-04-13 19:01 | NUR ---
PT WAS ADMITTED AT 1455 TO ROOM 202. PT APPLIED TO MONITOR.
[2020-04-13 19:55] VITALS: BP 117/62
[2020-04-13 23:06] LABS: BE(vivo) -8.7 mmol/L (-2 to +3); PO2 78.2 mmHg (80.0-100.0); sO2 89.8 % (92.0-98.0)
[2020-04-13 23:07] LABS: PCO2 70.2 mmHg (35.0-45.0); pH 7.093 (7.360-7.450)
[2020-04-13 23:53] LABS: CALCIUM 9.9 mg/dL (8.5-10.1); CREATININE 4.5 mg/dL (0.6-1.0); POTASSIUM 5.2 mmol/L (3.5-5.1)
[2020-04-14 00:35] VITALS: BP 114/61
[2020-04-14 00:43] LABS: BE(vivo) -7.5 mmol/L (-2 to +3); HCO3 20.1 mmol/L (22.0-26.0); PO2 135.3 mmHg (80.0-100.0); sO2 98.1 % (92.0-98.0)
[2020-04-14 00:44] LABS: pH 7.204 (7.360-7.450)
--- NOTE | 2020-04-14 01:25 | NUR ---
NURSE NOTED HYPOXIA DURING INITIAL ASSESSMENT. PATIENTS OXYGEN INCREASED TO FOUR LITERS VIA NASAL CANNULA WITH OXYGEN SATURATIONS INCREASING INTO MID TO HIGH 90'S. THE SHIFT PROGRESSED NURSE BECAME MORE CONCERNED WITH PATIENTS BREATHING PATTERN AND REQUESTED PANTS PRESSER TO ASSESS PATIENT. ORDERS OBTAINED FOR STAT ABG WHICH SHOWED PATIENTS PH 7.093 AND PO2 AT 70.2. PATIENT PLACED ON BIPAP IMMEDIATELY WITH STAT CONSULT PLACED TO HYDROCRANE OPERATOR. ORDERS RECEIVED FOR FOLLOW UP ABG WHICH SHOWED PATIENT IMPROVING TO PH 7.2 AND PCO2 OF 52. NURSE WAS INSTRUCTED TO CLOSELY MONITOR PATIENT AND LEAVE ON BIPAP.
[2020-04-14 05:15] VITALS: BP 107/64
[2020-04-14 06:01] LABS: ALBUMIN 1.8 g/dL (3.4-5.0); CALCIUM 9.7 mg/dL (8.5-10.1); CREATININE 4.5 mg/dL (0.6-1.0); MAGNESIUM 2.4 mg/dL (1.8-2.4); PHOSPHORUS 6.9 mg/dL (2.5-4.9); POTASSIUM 4.9 mmol/L (3.5-5.1)
[2020-04-14 06:02] LABS: MCH 24.9 pg (26.0-34.0)
[2020-04-14 06:04] LABS: HEMATOCRIT 26.5 % (37.0-47.0); HEMOGLOBIN 7.8 gm/dL (12.0-15.0); MCHC 29.3 g/dL (28.0-37.0); MCV 84.9 fL (80.0-100.0); PLATELET COUNT 245 thou/uL (150-400); RBC 3.12 mil/uL (4.20-5.00); RDW 29.8 % (10.5-14.5); WBC 7.4 thou/uL (4.0-11.0)
[2020-04-14 07:40] VITALS: BP 108/65
[2020-04-14 09:53] LABS: ABSOLUTE NEUTROPHILS 6.3 thou/uL (1.4-8.2); ANISOCYTOSIS 2+; METAMYELOCYTES 1 %
[2020-04-14 09:54] LABS: HYPOCHROMASIA 1+; LARGE PLATELETS OCCASIONAL; OVALOCYTES FEW; POIKILOCYTOSIS 1+
--- NOTE | 2020-04-14 10:35 | NUR ---
SPOKE WITH DR BALLARD, SHE STATED DR HOLLAND SPOKE WITH PT DAUGHTER AND DECIDED TO MAKE PT A DNR. ORDER ENTERED PER DR BALLARD REQUEST
[2020-04-14 11:15] VITALS: BP 107/67
--- NOTE | 2020-04-14 12:53 | NUR ---
PT WAS GIVEN NARCAN PER DR REESE ORDER, PT WITHIN A MINUTE WOKE UP, WAS HOLLERING, YELLING ABOUT SOMETHING BEING A MISTAKE AND A LOT OF INCOMPREHENSIBLE WORDS. PT SWEATING AND SHAKING. BREATHING 40-[address] REESE TO LET HIM KNOW THE RESULTS. UNABLE TO DRY CELL TESTER O2 SAT D/T MOVEMENT, PAGED RT TO BRING FOREHEAD PROBE. RT CAME TO BEDSIDE ALONG WITH DR REESE, DR REESE STATED TO TAKE OFF BIPAP WHILE PT AWAKE. PT PLACED ON NC. PT SPO2 WAS 88% ON 6L NC. PT PLACED BACK ON BIPAP AND RELAXING NOW, STARTING TO GO TO SLEEP. RESPIRATIONS DECREASED TO THE 30S AND SPO2 93%. LIGHTS DIMMED AND PT LAID BACK IN BED SLIGHTLY. PAGED DR BALLARD TO LET HER KNOW RESULTS OF NARCAN ADMINISTRATION.
--- NOTE | 2020-04-14 14:49 | NUR ---
Patient admits with hypernatremia, QUINTIN. Patient with recent dc from [facility] 04/06/20. Patient with hx of colon cancer. Spoke with Dr Boateng who reports he sp with dtr. Plan few days of acute medical care and determine how patient responds. Patient may be candidate for hospice services. Patient needing narcan and currently on BIPAP. Sp with dtr who reports she is concerned with care at [facility] if patient with recent discharge and condition declined. she was not called regarding decline. If pursue hospice dtr interested in [facility]. Traemgt following.
[2020-04-14 16:08] VITALS: BP 107/64
[2020-04-14 20:13] VITALS: BP 133/81
--- NOTE | 2020-04-15 03:01 | NUR ---
ASSUMED PATIENT CARE AT 1845. PATIENT REMAINS DISORIENTED AND LETHARGIC. BREATHING STABLE ON BIPAP WITH SATS IN HIGH 90'S. DECENT OUTPUT THROUGH WHITTINGTON CATHETER. PATIENT REPOSITIONED FREQUENTLY WITH INCONTINENCE CHECKS FOR SKIN CARE. VITAL SIGNS STABLE. CONTINUE PLAN OF CARE.
[2020-04-15 03:51] VITALS: BP 109/54
[2020-04-15 06:43] LABS: ALBUMIN 1.7 g/dL (3.4-5.0); CALCIUM 8.7 mg/dL (8.5-10.1); CREATININE 4.2 mg/dL (0.6-1.0); PHOSPHORUS 4.4 mg/dL (2.5-4.9); POTASSIUM 4.3 mmol/L (3.5-5.1)
[2020-04-15 07:53] VITALS: BP 98/55
[2020-04-15 10:04] LABS: BE(vivo) -3.8 mmol/L (-2 to +3); HCO3 22.2 mmol/L (22.0-26.0); PCO2 45.5 mmHg (35.0-45.0); sO2 97.5 % (92.0-98.0)
[2020-04-15 10:05] LABS: pH 7.307 (7.360-7.450)
[2020-04-15 11:50] VITALS: BP 128/63
[2020-04-15 15:28] VITALS: BP 123/73
[2020-04-15 16:45] VITALS: BP 123/73
--- NOTE | 2020-04-15 16:59 | NUR ---
ASSUMED CARE OF PT AT SHIFT CHANGE. ASSESSMENTS CHARTED. MEDS GIVEN PER JUL. PT ALERT TO SELF. WHILE ON BIBPAP A CRITICL PH VALUE OF7.31 WAS CALLED TO . NO FURTHER ODRES WERE RECEIVED. PT KEPT TAKING THE BIPAP MASK OFF, NOTIFIED, AND WAS TOLD TO CHANGED HER TO 4L NC. PT TOLERATED THAT WELL. PT CALLS OUT FREQUENTLY "HELP ME" OR LOUDLY MOANS, BUT RESPONDS IN GARBLED SPEECH. DOES NOT APPEAR TO BE IN DISTRESS. WILL CONTINUE TO MONITOR AND FOLLOW POC.
[2020-04-15 19:20] VITALS: BP 134/67
[2020-04-16] VITALS: BP 105/56
[2020-04-16 04:00] VITALS: BP 137/64
--- NOTE | 2020-04-16 04:59 | NUR ---
CARE ASSUMED 1900. ALERT TO SELF. MOANING INTERITTENTLY BUT NO APPARENT PAIN. PT HAD fever AT THE BIGINNING OF THE SHIFT. TYLENOL X1. FEVER RESOLVED. NO OTHER CONCERNS. WILL CONTINUE TO MONITOR .
[2020-04-16 07:45] VITALS: BP 129/52
[2020-04-16 07:54] LABS: HEMOGLOBIN 6.5 gm/dL (12.0-15.0); MCV 82.4 fL (80.0-100.0)
[2020-04-16 07:55] LABS: HEMATOCRIT 21.8 % (37.0-47.0); MCH 24.6 pg (26.0-34.0); MCHC 29.9 g/dL (28.0-37.0); RBC 2.65 mil/uL (4.20-5.00); RDW 29.5 % (10.5-14.5)
[2020-04-16 08:08] LABS: CALCIUM 9.1 mg/dL (8.5-10.1); CREATININE 3.8 mg/dL (0.6-1.0); POTASSIUM 3.3 mmol/L (3.5-5.1)
--- NOTE | 2020-04-16 10:57 | NUR ---
Case discussed with the care team. Pt off bipap and on 4lnc. Her hgb is 6.8 and she is getting blood tx today. Dc time frame is uncertain pending her progress and plan of care. Will follow.
[2020-04-16 11:47] VITALS: BP 121/58; BP 122/58
[2020-04-16 12:00] VITALS: BP 144/89
[2020-04-16 15:03] LABS: HEMATOCRIT 26.5 % (37.0-47.0); HEMOGLOBIN 8.2 gm/dL (12.0-15.0)
--- NOTE | 2020-04-16 17:45 | NUR ---
ASSUMED CARE PT SHIFT CHANGE. ASSESSMETNS CHARTED.MEDS GIVEN PER JUL. PT ALERT AND ORIENTED SELF AND PLACE. FORGETFUL CONFUSED. HGB 6.5 THIS AM, 1 UNIT TRANSFUSED PER ORDERS. ABDOMEN DISTENDED, PTUNABLE TO PASS BM. PHYSICIAN NOTIFIED. ORDERS RECEIVED. PT HAD 2 LARGE BM'S. STOOLSAMPLE SENT TO LAB FOR OCCULT. PT APPETITE ADEQUATE WITHASSISTANCE FEEDING. PT CURRENTLY RESTINGIN BED DENIES NEEDS IN NAP. WILL CONT TO [facility] AND FOLLOW POC. WILL PASS ON REPORT TO NOC RN.
[2020-04-16 19:30] VITALS: BP 126/63
--- NOTE | 2020-04-17 03:31 | NUR ---
Pt. rested quietly at intervals during the night when checked on during frequent rounds. She is alert with confusion. Pt. offers no c/o pain. Bed alarm is on.
[2020-04-17 03:40] VITALS: BP 141/64
[2020-04-17 05:11] LABS: ALBUMIN 1.6 g/dL (3.4-5.0); CALCIUM 9.3 mg/dL (8.5-10.1); CREATININE 3.4 mg/dL (0.6-1.0); PHOSPHORUS 2.6 mg/dL (2.5-4.9); POTASSIUM 3.5 mmol/L (3.5-5.1)
[2020-04-17 07:35] VITALS: BP 135/55
[2020-04-17 09:52] LABS: HEMATOCRIT 27.3 % (37.0-47.0); HEMOGLOBIN 8.3 gm/dL (12.0-15.0); MCH 25.6 pg (26.0-34.0); MCHC 30.4 g/dL (28.0-37.0); MCV 84.3 fL (80.0-100.0); PLATELET COUNT 333 thou/uL (150-400); RBC 3.24 mil/uL (4.20-5.00); RDW 26.9 % (10.5-14.5); WBC 12.6 thou/uL (4.0-11.0)
[2020-04-17 10:07] LABS: ABSOLUTE NEUTROPHILS 9.5 thou/uL (1.4-8.2); ANISOCYTOSIS 2+; LARGE PLATELETS FEW; METAMYELOCYTES 3 %; MYELOCYTES 1 %; PLATELET ESTIMATE NORMAL
[2020-04-17 11:43] VITALS: BP 136/66
[2020-04-17 15:46] VITALS: BP 135/67
--- NOTE | 2020-04-17 17:22 | NUR ---
PT ALERT TO SELF WITH CONFUSION. VSS. HAD LARGE BM THIS SHIFT. EVALUATED BY PT AND OT. NEW ORDERS NOTED. NO CONCERNS AT THIS TIME.
[2020-04-17 19:20] VITALS: BP 141/66
--- NOTE | 2020-04-18 00:47 | NUR ---
PT IS ALERT TO SELF. CONFUSED AND RESTLESS. C/O PAIN RATING IT AT 10, GIVEN NORCO X 1. RLE ELEVATED. CAST IN PLACE,GOOD CSM TO THE TOES.STABLE ON /.CONTINUES ON DEXTROSE, HS BLOOD SUGAR WAS 124.PT SWALLOWS MEDS WELL WITH NECTAR THICKENED LIQUIDS AND APPLE SAUCE.WILL CONTINUE WITH POC TILL EOS.
[2020-04-18 05:36] LABS: ALBUMIN 1.4 g/dL (3.4-5.0); CALCIUM 9.3 mg/dL (8.5-10.1); PHOSPHORUS 2.2 mg/dL (2.5-4.9)
[2020-04-18 07:45] VITALS: BP 146/76
[2020-04-18 11:04] VITALS: BP 116/54
[2020-04-18 15:05] VITALS: BP 124/69
--- NOTE | 2020-04-18 16:03 | NUR ---
PT ALERT AND ORIENTED TO SELF WITH CONFUSION. VSS. HAD 4 EPISODE OF LOOSE STOOL THIS SHIFT. DR. BALLARD NOTIFIED. NEW ORDERS NOTED.
[2020-04-18 20:07] VITALS: BP 145/52
--- NOTE | 2020-04-19 03:21 | NUR ---
PT CARE ASSUMED AT 1900 WITH PT IN BED SLEEPING.PT IS ALERT AND ORIENTED TO SELF.PT IS ON BEDREST.PT HAS A CAST ON HE RT FOOT.PT APPEARED TO BE IN NO ACUTE DISTRESS .PT IS ON O2 3L NC .WILL CONTINUE TO MONITOR POC
[2020-04-19 04:04] LABS: HEMOGLOBIN 8.1 gm/dL (12.0-15.0); MCH 25.8 pg (26.0-34.0); MCHC 31.2 g/dL (28.0-37.0); MCV 82.7 fL (80.0-100.0); RBC 3.15 mil/uL (4.20-5.00); RDW 28.2 % (10.5-14.5); WBC 15.4 thou/uL (4.0-11.0)
[2020-04-19 04:10] LABS: CALCIUM 8.7 mg/dL (8.5-10.1); CREATININE 2.8 mg/dL (0.6-1.0)
[2020-04-19 06:05] VITALS: BP 136/71
[2020-04-19 08:27] VITALS: BP 125/63
[2020-04-19 12:25] VITALS: BP 117/60
--- NOTE | 2020-04-19 14:43 | NUR ---
Elder recieved notification that the pt's dtr is no longer her legal guardian as of 03/08/20. Per court order, the Romeo Swan PA's office is her guaridan kj sapp and conservator ad sekou. A copy of this document was recieved and placed on the chart from the PA's office. Nursing and the attending updated. Medical records was faxed the document to scan into the record and registration was notified to update the facesheet. Tool Crib Clerk spoke with elder Valenzuela from the PA's office who indicates that the dc plan is to return to LTC at [facility] when medically ready. He did authorize pt's dtr Julieta to continue to be able to get medical updates and to be the designated visitor. Kieran advised that pt has DNR status and he is faxing the paperwork to be completed by the attending. He would like to be notified at dc and copy of her dc summary faxed to their office at [phone].
--- NOTE | 2020-04-19 16:42 | NUR ---
FAXED CLINICAL UPDATE TO [facility] RECEIVED CONFIRMATION AND LEFT MSG WITH DANTE IN ADM. DP TO FOLLOW.
[2020-04-19 16:57] VITALS: BP 121/67
--- NOTE | 2020-04-19 18:16 | NUR ---
PT ASSESSED AT START OF SHIFT. VERY CONFUSED THIS AM BUT SOME BETTER LATTER THIS AFTERNOON. PT WANTING TO EAT AND ABLE TO FEED HERSELF DINNER. IV FLUIDS DECREASED TO 100MLS/HR PER ORDER. HAD 3 SOFT MUSHY BROWN STOOLS. WORKED W/ THERAPY SOME. TO HAVE HEAD MRI TOMORROW UNABLE TO DO TODAY.
[2020-04-19 20:00] VITALS: BP 110/63
[2020-04-20 04:00] VITALS: BP 120/60
[2020-04-20 07:26] VITALS: BP 126/70
--- NOTE | 2020-04-20 07:45 | NUR ---
ASSUMED CARE OF THE PATIENT AT 1900; ALERT AND ORIENTED TO SELF/SITUATION, CONFUSED/ANXIOUS AT TIMES; C/O OF PAIN MANAGED WITH PRN AND ONETIME PAIN MED ORDERS; VSS/SR ON THE MONITOR; PLAN IS TO CONTINUE ANTIBIOTIC THERAPY AND HAVE ORTHO EVALUATE RT LOWER EXTREMITY INCISION AND REMOVE BEBETO TODAY; WILL CONTINUE TO MONITOR.
--- NOTE | 2020-04-20 08:07 | HC ---
[facility] [place] [address] CONSULTATION Name: CHARLOTTE CHAPPELL Room #: 202-P ADM IN M.R.#: [id number] Admission: 04/13/20 Attend Phys: Suzette Guzman MD Discharge: Date of : 48 Report #: [id number] THIS REPORT FOR: cc: Evaristo Carreon,Evaristo Singh,Kieran Manzano MD ~ PHYSICIAN REQUESTING CONSULT: Dr. Suzette Guzman REASON FOR CONSUL: History of colorectal cancer stage 4. HISTORY OF PRESENT ILLNESS: The patient is a 69-year-old female who I had the opportunity to meet during her last admission. At that time, she had fallen at the nursing facility and had a trimalleolar fracture and had subsequent surgery. Previous to that, she had been followed by my partner, Dr. Rodrigo Do, with a history of stage IV colon cancer, not having yet received ____. The patient had been recently at a nursing facility for about the last week. I believe there had been some pain issues. She may have received some long-acting morphine. Within the office yesterday, did consider chemotherapy, but they has felt altered/worsening mental status changes. EMS was activated and she was brought to the hospital. Here, she has had a CT head which was unremarkable. Note, an MRI is pending. Her TSH was found to be elevated around 26. Her sodium was high at 155, she was also hypercapnic. BUN was 58, creatinine around 4.5, note that her baseline is around 2.5 recently. Calcium was elevated, but today is back to a more reasonable number. At this time in the Med/Surg floor, the patient is now on BiPAP, can flutter her eyes and moan, but cannot really tell me much. PAST MEDICAL HISTORY: Notable for the colon cancer diagnosed in 2016 that was node positive. The patient did not receive adjuvant chemotherapy and was lost to follow up ____. Had recently seen Dr. Do and was found to have liver metastasis. They were considering chemotherapy, which had not yet begun because of the patient's health status. She also has a history of bipolar schizoaffective disorder, also history of hypothyroid, recent atrial fibrillation, also has hypertension, also recent renal insufficiency. FAMILY HISTORY: Noncontributory. MEDICATIONS: At this time in the hospital currently include MiraLax 17 grams daily as needed, pantoprazole 40 mg daily, heparin 5000 units b.i.d., amlodipine 5 mg b.i.d., Tylenol p.r.n., Zofran p.r.n., levothyroxine 200 mcg daily IV push for 2 doses. Some other medications ____ valproic, trazodone, ropinirole, benztropine have been currently held and not yet restarted. [address] [address] CONSULTATION Name: CHARLOTTE CHAPPELL Room #: 202-P [facility] IN M.R.#: [id number] Admission: 04/13/20 Attend Phys: Suzette Guzman MD Discharge: Date of : 48 Report #: [id number] PHYSICAL EXAMINATION: VITAL SIGNS: Height is reportedly 5 feet 5 inches or 165 cm, weight 210 pounds or 95.3 kilograms. Blood pressure is 108/65, O2 sat 94%, respirations 20, pulse 87, oral temperature 98.0. The patient is currently on BiPAP with an FiO2 of 30% with O2 sat of 94. MOOD: The patient cannot be assessed. NEUROLOGIC: Altered mental status with difficult wakening up. The patient does flutter eyes with calling her name loudly in her ear. LUNGS: Mostly clear, there may be some central soft rhonchi that clear. HEART: Regular rate. LYMPHATICS: No enlarged lymph nodes in the supraclavicular, cervical or axillary region. ABDOMEN: Slightly protuberant, may be a mass in the middle but hard to touch. EXTREMITIES: Without clubbing, cyanosis. There is some trace edema. ASSESSMENT AND PLAN: 1. Metastatic colon cancer. The patient is currently too sick to consider chemotherapy. I am concerned that she will not likely recover to receive chemotherapy, both because of her mentation and multiple health issues. 2. Code status. I called the patient's daughter, Jesus, and talked with her. I told her that I am concerned that the patient may not be healthy enough to ever take chemotherapy and that if her current cognitive impairment does not improve, this may be a sign of underlying or internal organ dysfunction that we were not aware of. I would suggest we try to be aggressive within the next several days. I suggested to her that we will not consider mechanical ventilation CPR if she decompensates. She is agreeable and we also talked that we possibly might consider hospice or palliative care if things do not improve in the next several days of investigation and interventions. She also was very agreeable with this. I did talk to social services analyst and also Dr. Guzman about this discussion. 3. Altered mental status, unclear whether related to medications. The patient did have morphine long-acting in the hospital, did receive a dose of Narcan. We will probably redose her here. We will also probably receive increased thyroid replacement. Continue oxygen supplementation. Note that the MRI head has been mentioned. May also consider ammonia level. 4. Acute kidney injury with chronic renal insufficiency. Dr. Beavers, Nephrology, is following and is giving hydration. 5. Hypernatremia. Free water being given. 6. Anemia. Did receive iron infusion/so she should not be iron deficient. May be related to chronic illness as well as renal insufficiency. Continue serial monitoring. 7. History of atrial fibrillation on last admit. I discussed that it would be too dangerous to anticoagulate and her rate was well controlled. 8. Hypercapnic respiratory failure. Continue BiPAP. [facility] [address] [place] [address] CONSULTATION Name: CHARLOTTE CHAPPELL Room #: 202-P ADM IN M.R.#: [id number] Admission: 04/13/20 Attend Phys: Suzette Guzman MD Discharge: Date of : 48 Report #: [id number] 9. Bipolar and schizoaffective disorder. Meds per others are currently being held and will be reordered. 10. Trimalleolar fracture, status post surgery. Splint in place. We will defer physical therapy and wound/surgical management to others. 11. Hypertension. Meds per others. <ELECTRONICALLY SIGNED> By: Kieran Boateng MD 04/20/20 [id number] Kieran Boateng MD /nt
[2020-04-20 11:10] LABS: CALCIUM 9.1 mg/dL (8.5-10.1); CREATININE 2.8 mg/dL (0.6-1.0)
--- NOTE | 2020-04-20 14:29 | NUR ---
Nutrition: pt admitted with AMS, ARF. Seen for LOS. PMH: dementia, HTN, stage 4 colon CA, shizophrenia. Eating 50-100% of meals on Pureed diet with nectar thick liquids followed by ST. Able to feed self 100% intake of ensure pudding recently documented-receives at breakfast. Will offer magic cup at lunch due to suboptimal intake at times. Hypernatremia, On D5 IVFs. Current weight 167#. Weight in 2019 was 175#. Admit weight of 210# error. Consider low risk with interventions in place.
--- NOTE | 2020-04-20 15:41 | NUR ---
Patient not stable for discharge today. Updated [facility].
--- NOTE | 2020-04-20 17:26 | NUR ---
ORIENTED TO SELF. WORKING WITH PT AND OT. CONTINENT OF A FORMED STOOL. [place] INTACT WITH BRISK OUTPUT. MRI HEAD UNREMARKABLE. FED HERSELF LUNCH AFTER BEING SET UP. SR PER TELE. FALL PRECAUTIONS IN PLACE, CLOSE TO NURSES' STATION.
[2020-04-20 17:42] VITALS: BP 138/54
[2020-04-20 19:21] VITALS: BP 140/74
[2020-04-20 19:30] VITALS: BP 140/74
--- NOTE | 2020-04-21 04:02 | NUR ---
Assumed pt care at 1900. Pt is alert but confused. No sign of distress noted in pt. Pt verbalized abdominal pain. Pt is laying in bed. Pain med admnistered accordingly. Fall precaution in place. Assessment completed and documented. Scheduled meds administered to pt. No acute events overnight. Continue to monitor. Pt is pending discharge. No further needs at this time.
[2020-04-21 05:53] LABS: CALCIUM 9.2 mg/dL (8.5-10.1); CREATININE 2.8 mg/dL (0.6-1.0); POTASSIUM 4.4 mmol/L (3.5-5.1)
[2020-04-21 08:21] VITALS: BP 116/65
[2020-04-21 11:48] VITALS: BP 138/76
--- NOTE | 2020-04-21 14:18 | NUR ---
Patient not stable for dc to [facility]. Phys completed "request for DNR" form from Public Administrators office. Faxed completed paperwork to PA office for review.
[2020-04-21 15:00] VITALS: BP 128/70
[2020-04-21 19:20] VITALS: BP 128/84
--- NOTE | 2020-04-21 19:51 | NUR ---
PT ALERT, VSS, C/O PAIN. PILLS CRUSHED, 2L O2, WHITTINGTON PATENT. BOTH IV PATENT. UA COLLECTED. MEDS GIVEN ORDERED. ASSESSMENT COMPLETED. TELE. NO SIGNS OF DISTRESS. WILL CONTINUE TO MONITOR.
[2020-04-21 20:56] LABS: URINE BILIRUBIN NEGATIVE (Negative); URINE BLOOD 3+ (Negative); URINE CLARITY CLEAR; URINE COLOR YELLOW; URINE GLUCOSE-RANDOM* 2+ (Negative); URINE KETONES NEGATIVE (Negative); URINE LEUKOCYTES NEGATIVE (Negative); URINE NITRITE NEGATIVE (Negative); URINE PROTEIN (DIPSTICK) NEGATIVE (Negative); URINE SPECIFIC GRAVITY <= 1.005 (1.005-1.035); URINE UROBILINOGEN 0.2 E.U./dl (0.2-1.0)
[2020-04-21 21:07] LABS: URINE RBC 0-2 Rare /HPF (0-2); YEAST Present (None Seen)
[2020-04-21 21:08] LABS: BACTERIA 1-9 Few /HPF (None Seen); CASTS None Seen /LPF (None Seen); CRYSTALS None Seen /LPF (None Seen); SQUAMOUS 0-3 Few /LPF (0-3); URINE WBC None Seen /HPF (0-5)
[2020-04-22 03:30] VITALS: BP 126/64
--- NOTE | 2020-04-22 06:19 | NUR ---
Assumed pt care at 1900. A/OX2,confused and at times hard to understand her words.VSS.C/o back/RLE pain medicated with [place] with relief reported. Pt has a cast on RLE with CMS intact. Awad patent to DD with light yellow urine. Takes meds crushed in applesauce w/o problems. Fall precautions in place.On 2L/NC. SR on telemetry.
[2020-04-22 06:27] LABS: ALBUMIN 1.3 g/dL (3.4-5.0); CALCIUM 8.6 mg/dL (8.5-10.1); CREATININE 2.7 mg/dL (0.6-1.0); PHOSPHORUS 4.2 mg/dL (2.5-4.9); POTASSIUM 4.2 mmol/L (3.5-5.1)
[2020-04-22 08:44] VITALS: BP 136/73
[2020-04-22 11:19] VITALS: BP 120/78
--- NOTE | 2020-04-22 14:40 | NUR ---
Case discussed with the care team. DC back to [facility] ltc on hold due to fluctuating sodium level. [facility] notified. Palliative Care consult pending as well. [facility] indicates they can accept the pt back with hospice services as well if indicated. [facility] is their primary hospice provider. Dr. Vasquez provided both the legal guardians number as well as the pt's dtr Julieta for discussion with both parties. The pt's outside the hospital DNR from was signed by the attending and the [facility] Public Admin. Both a copy and the original has been placed on the chart. Will follow.
[2020-04-22 15:05] VITALS: BP 132/70
--- NOTE | 2020-04-22 16:07 | NUR ---
FAXED A COPY OF DNR PAPERWORK SIGNED BY PT'S PHYSICIAN AND PA'S OFFICE (GUARDIAN) RECEIVED CONFIRMATION AND LEFT MSG WITH DANTE IN ADM.
--- NOTE | 2020-04-22 20:06 | NUR ---
ASSUMED CARE AT CHANGE OF SHIFT. ALERT X2, FROM LTC. DR GLASS CONSULTED FOR PALLIATIVE CARE. 2L NASAL CANNULA. HX OF COLON CA DR HOLLAND FOLLOWING, WHITTINGTON CATH. NO BM TODAY. PURRED NECTOR THICK DIET. RIGHT LE SOFT CAST IN PLACE. SEE NOTE FOR WTE BEARING STATUS. PAIN MANAGED WITH MEDICATIONS. FALL PRECAUTIONS IN PLACE. CLOSE TO NURSES STATION FOR OVER SIGHT.
[2020-04-23 00:20] VITALS: BP 135/64
[2020-04-23 04:14] VITALS: BP 130/72
[2020-04-23 04:20] LABS: ALBUMIN 1.3 g/dL (3.4-5.0); CALCIUM 9.2 mg/dL (8.5-10.1); CREATININE 2.7 mg/dL (0.6-1.0); PHOSPHORUS 4.1 mg/dL (2.5-4.9); POTASSIUM 3.8 mmol/L (3.5-5.1)
--- NOTE | 2020-04-23 06:10 | NUR ---
PATIENTS CARES WERE ASSUMED AT SHIFT CHANGE.PATIENT WAS ASSESSED AND MEDS WERE GIVEN. PATIENT DOES NOT ENGAGE IN CONVERTATION HOWEVER SHE WILL SPEEK TO GET HER NEEDS MEET.THE BED IS IN A LOW AND LOCKED POSITION. NO IMPROVEMENT TOWARDS DISCHARGE SEEN.
[2020-04-23 07:35] VITALS: BP 129/62
[2020-04-23 11:30] VITALS: BP 139/67
--- NOTE | 2020-04-23 14:31 | NUR ---
Pt IS DISCHARGED FROM FURTHER O.T. SERVICES IN ACUTE CARE SETTING. REMAINING GOALS NOT MET INVOLVE STANDING ABILITY, IE, TOILET TRANSFER. IN CONSULTATION WITH P.T., Pt IS UNLIKELY TO ACHIEVE THIS GOAL BY DISCHARGE DUE TO SIGNIFICANT WEAKNESS AND POOR COGNITION FOR FOLLOWING DIRECTIONS TO MAINTAIN NON WEIGHT BEARING ON RIGHT LE. ALSO, PLANS ARE PENDING FOR HOSPICE CARE FOLLOWING DISCHARGE.
--- NOTE | 2020-04-23 14:47 | NUR ---
Palliative care consult pending. Pt's sodium better today and ST upgraded her diet to increase her fluids. [facility]. Awaiting confirmation that they can accept admissions on the weekend if she is ready. Will follow.
[2020-04-23 15:15] VITALS: BP 136/71
--- NOTE | 2020-04-23 18:10 | NUR ---
RECEIVED PT'S CARE AROUND 07; PT. ON BED; RESTING WITH EYES CLOSED; EQUAL CHEST RISING; SR ON THE MONITOR; DURING AM ASSESSMENT SLEEP INTERRUPTED; PT. ALERT TO PERSON; NO C/O PAIN; BREAKFAST SET UP; ABLE TO EAT BY HERSELF; PER DR. ELIO REYNOSO RE-ASSESSMENT; DIET ADVANCED; PER [facility] FOR PT. TO HAVE FREE WATER; REFUSED LUNCH; INCONTINENT OF STOOLS; BED CHANGED TWICE THROUGH THE DAY; WORKED WITH PT AND OT; NOT ABLE TO STAND UP; URINE SAMPLE COLLECTED; DAUGHTER AT THE BED SIDE DURING THE EVENING; DR. GLASS AT THE BED SIDE DURING THE EVENING; ASSESSMENT CHARGED; FOLLOWING POC; WILL PASS ON REPORT;
[2020-04-23 19:30] VITALS: BP 146/61
[2020-04-24 03:30] VITALS: BP 122/51
--- NOTE | 2020-04-24 04:49 | NUR ---
ASSESSMENT DOCUMENTED.PT A/O X2 W/CONFUSION BUT FOLLOWS COMMANDS.IVF.PAIN MEDS ORDERED.RIGHT FOOT BRACE IN PLACE.WHITTINGTON DD LARGE AMOUNT OF CLEAR URINE.IVF INFUSING.NO CONCERNS VOICED AT THIS TIME.WILL MONITOR.
[2020-04-24 07:37] VITALS: BP 132/13
[2020-04-24 11:20] VITALS: BP 138/84
[2020-04-24 12:32] LABS: HEMATOCRIT 28.7 % (37.0-47.0); HEMOGLOBIN 8.8 gm/dL (12.0-15.0); MCH 25.4 pg (26.0-34.0); MCHC 30.5 g/dL (28.0-37.0); MCV 83.2 fL (80.0-100.0); PLATELET COUNT 324 thou/uL (150-400); RBC 3.45 mil/uL (4.20-5.00); RDW 27.8 % (10.5-14.5); WBC 15.4 thou/uL (4.0-11.0)
[2020-04-24 12:47] LABS: ALBUMIN 1.4 g/dL (3.4-5.0); CALCIUM 9.8 mg/dL (8.5-10.1); CREATININE 2.5 mg/dL (0.6-1.0); MAGNESIUM 1.8 mg/dL (1.8-2.4); POTASSIUM 4.1 mmol/L (3.5-5.1); TOTAL BILIRUBIN 0.2 mg/dL (0.2-1.0); TOTAL PROTEIN 6.6 g/dL (6.4-8.2)
[2020-04-24 14:33] LABS: ABSOLUTE NEUTROPHILS 12.5 thou/uL (1.4-8.2); METAMYELOCYTES 1 %
[2020-04-24 14:36] LABS: HYPOCHROMASIA 1+; MACROCYTES 1+; MICROCYTES 2+
[2020-04-24 15:15] VITALS: BP 127/73
--- NOTE | 2020-04-24 17:22 | NUR ---
RECEIVED PT'S CARE AROUND 0735; PT. ON BED; AOX4; DURING AM ASSESSMENT C/O PAIN; PRN PAIN MEDICATION GIVEN WITH AM MEDICATIONS; EDEMA NOTICED OVER L. FOOT; EDUCATED ABOUT ELEVATING FOOT; PT. ST. NEED TO HANG LEG IN ORDER TO IMPROVE CIRCULATION AND DECREASE PAIN; ST. PAIN MEDICATION NOT HELPING TO DECREASE PAIN; PHYSICIAN NOTIFIED; NO NEW ORDERS; APTT THERAPEUTIC; HEPARIN GTT RATE NOT CHANGED; PRN MEDICATION GIVEN THROUGH THE DAY; REQUESTED ICE PACK ; PROVIDED; ASSESSMENT CHARGED; FOLLOWING POC; WILL PASS ON REPORT;
--- NOTE | 2020-04-24 17:43 | NUR ---
RECEIVED PT'S CARE AROUND 0710; PT. ON BED; RESTING WITH EYES CLOSED; DURING AM ASSESSMENT PT. ALERT TO PERSON; C/O BACK PAIN; SCHEDULED PAIN MEDICATION GIVEN; AM MEDICATIONS GIVEN; NOTICED NO AM LABS; PHYSICIAN NOTIFIED; ORDERS ON PLACED; LABS BACK; PHYSICIAN NOTIFIED; ABLE TO HAVE MEALS THROUGH THE DAY; DURING THE AFTERNOON NEPHROLOGY ROUNDING; NOTIFIED ABOUT AM LABS; ORDERS ON PLACED; IV FLUIDS CHANGED; DR. FREGOSO NOTIFIED; NO NEW ORDERS; BM DURING THE AFTERNOON; TURNED FROM SIDE TO SIDE THROUGH THE DAY; SR ON THE MONITOR; ASSESSMENT CHARGED; FOLLOWING POC; WILL PASS ON REPORT;
[2020-04-24 19:30] VITALS: BP 123/57
[2020-04-25 04:00] VITALS: BP 128/55
[2020-04-25 04:44] LABS: ALBUMIN 1.3 g/dL (3.4-5.0); CALCIUM 9.4 mg/dL (8.5-10.1); CREATININE 2.6 mg/dL (0.6-1.0); PHOSPHORUS 4.1 mg/dL (2.5-4.9); POTASSIUM 4.6 mmol/L (3.5-5.1)
--- NOTE | 2020-04-25 05:39 | NUR ---
ASSUMED PATIENT CARE AT 1845. VITAL SIGNS STABLE. PATIENT IS ALERT TO SELF ONLY AND IS UNABLE TO CALL APPROPRIATELY FOR NEEDS OR PARTICIPATE IN CARE. BREATHING ON LOW LEVEL OXYGEN EVIDENCED BY ASSESSMENTS AND SPOT OXYGENATION CHECKS. PATIENT ENCOURAGED TO DRINK MORE WATER WITH NURSE OFFERING MORE OPPORTUNITIES. CONTINUE PLAN OF CARE.
[2020-04-25 07:30] VITALS: BP 128/68
[2020-04-25 11:40] VITALS: BP 131/69
[2020-04-25 15:00] VITALS: BP 130/62
[2020-04-25 20:36] VITALS: BP 135/72
[2020-04-25 22:30] VITALS: BP 132/68
--- NOTE | 2020-04-26 03:21 | NUR ---
PT IS A TRANSFER FROM THE CCU .PT IS A/O X3 AND CONFUSE.PT IS ON TELE WITH NSR.PT HAS A RT FOOT SOFT CAST AND C/O PAIN WITH SCHEDULED PAIN MEDICATION.P[T IS ON O2 2L PER NC.PT HAS A WHITTINGTON CATHETER IN PLACE.WILL CONTINUE TO MONITOR PER POC
[2020-04-26 06:21] VITALS: BP 142/59
[2020-04-26 07:25] VITALS: BP 135/76
[2020-04-26 08:36] LABS: ALBUMIN 1.4 g/dL (3.4-5.0); CALCIUM 10.6 mg/dL (8.5-10.1); CREATININE 2.6 mg/dL (0.6-1.0); POTASSIUM 4.7 mmol/L (3.5-5.1)
--- NOTE | 2020-04-26 14:49 | NUR ---
Received awake on bed. Due medications given as prescribed, able to swallow meds w/o difficulty. On O2 at 2lpm via nasal cannula. On telemetry; no complains and signs of chest pain, crushing sensation and heaviness. On mechanically altered diet, nectar thick fluids- assisted and encouraged in eating and drinking; no nausea, no vomiting and no abdominal pain noted. Falls bundle in place. Assisted in ADLs. With D51/2NS at 100cc/hr, infusing well at L upper arm. With guzman in place- output measured and recorded accordingly; draining well. To continue monitoring patient. Complained of pain, due PRN pain meds given as prescribed. Pt seen and examined by Dr Guzman, D/C IVF. Possible d/c to hospice or back to facility with hospice care- CM informed and aware.
--- NOTE | 2020-04-26 16:30 | NUR ---
KAYLEE WAS NOTIFIED THAT DR. GLASS HAD SPOKEN WIHT DTR AND PA OFFICE AND THAT THEY WERE ALL AGREEABLE FOR HOSPICE HOUSE EVAL. KAYLEE CALLED AND SPOKE WITH EMILE AT THE PA'S OFFICE AND [facility] CONFIRMED. LIZZY ASSESSED AND SHE INDICATED THAT PT WOULD NOT MEET CRITERIA AT THIS TIME AND THAT DC BACK TO HER FACILITY WITH HOSPICE WOULD BE APPROPRIATE. KAYLEE NOTIFIED PHYSICIAN. KAYLEE TO FACILITATE DISCAHRGE TO [facility] WITH [facility] TOMORROW.
[2020-04-26 16:42] VITALS: BP 145/73
[2020-04-26 20:03] VITALS: BP 150/74
[2020-04-27 07:04] VITALS: BP 136/61
--- NOTE | 2020-04-27 08:05 | NUR ---
KEPT CLOSE TO NURSING STATION FOR CONFUSION AND IMPULSIVITY. FREQUENT VISUAL CHECKS DONE. PRN MEDS GIVEN FOR PT REUEST. NO S/S ACUTE DISTRESS NOTED OR REPORTED AT THIS TIME. CARE TRANSFERRED TO SHADE DC AT THIS TIME.
[2020-04-27] MEDS ORDERED: HALOPERIDOL 1 MG1 MG PO (08:12)
[2020-04-27] MEDS ORDERED: LORAZEPAM I2 MG/1 M2 SUBLING (08:12)
[2020-04-27] MEDS ORDERED: MORPHINE S20 MG/5 ML PO (08:14)
--- NOTE | 2020-04-27 10:20 | NUR ---
CARE TEAM INDICATED THAT PT IS MEDICALLY STABLE TO DISCHARGE BACK TO [facility] THIS DAY [facility]. CM CALLED AND SPOKE WITH LAURA AT PA'S OFFICE SHE IS AWARE AND AGREEABLE. CM CALLED FACILITY AND ASKED FOR KLEVER IN ADMISSIONS SHE WAS IN A MEETING. CM FAXED CLINICAL TO FACILITY AND TO [facility]. CM AWAITING CONFIRMATION OF RECIEPT AND OK TO ARRANGE TRANSPORT. CM TO NOTIFY DTR AND PA'S OFFICE ONCE ALL SET UP.
--- NOTE | 2020-04-27 10:58 | NUR ---
Patient is confused, but oriented to person, place, situation. complaints of pain in lower right leg, unable to state a pain scale number. R mid upper arm IV discountined.
--- NOTE | 2020-04-27 11:09 | NUR ---
I have reviewed the student documentation.
--- NOTE | 2020-04-27 14:06 | NUR ---
ASSUMED PT CARE THIS AM. PT VSS, A&OX3 DURING DAY SHIFT WITH A LOT OF CONFUSION, PT KNOWS WHAT IS GOING ON BUT MUMBLES AND DOES NOT ANSWER SOME QUESTIONS WELL. PAIN MEDICATION GIVEN THIS AM, NO FURTHER REPORTS OF PAIN. PT EATING MEALS, HYDRATION PROMOTED. AWAITING DISCHARGE TO FACILITY. IV IN JERALD IS PATENT, REMOVED INFILTRATED IV IN RIGHT ARM.
[2020-04-27 14:43] VITALS: BP 163/77
== END 2020-04-27 16:14 | DRG 682 ==
LOC: ER 10:17 → EROBS 14:14 → 2N 14:14 → 4W 04-25 22:14
PROVIDERS: Emergency Medicine; Hospitalist; Internal Medicine; Internal Medicine Nephrology; Internal Medicine Pulmonary Disease; Nurse Practitioner; Nurse Practitioner Family; ADMIT Hospitalist; ATTEND Hospitalist
PROC: 30233N1 Transfusion of Nonautologous Red Blood Cells into Peripheral Vein, Percutaneous Approach (ICD-10-PCS; principal; 2020-04-16)
DX: N17.9 Acute kidney failure, unspecified (principal); G93.41 Metabolic encephalopathy; E43 Unspecified severe protein-calorie malnutrition; J96.02 Acute respiratory failure with hypercapnia; J96.01 Acute respiratory failure with hypoxia; C78.5 Secondary malignant neoplasm of large intestine and rectum; E87.0 Hyperosmolality and hypernatremia; I13.0 Hypertensive heart and chronic kidney disease with heart failure and stage 1 through stage 4 chronic kidney disease, or unspecified chronic kidney disease; N18.4 Chronic kidney disease, stage 4 (severe); F03.90 Unspecified dementia, unspecified severity, without behavioral disturbance, psychotic disturbance, mood disturbance, and anxiety; E86.0 Dehydration; E87.5 Hyperkalemia; E03.9 Hypothyroidism, unspecified; D63.8 Anemia in other chronic diseases classified elsewhere; D50.9 Iron deficiency anemia, unspecified; I48.91 Unspecified atrial fibrillation; Z66 Do not resuscitate; T40.605A Adverse effect of unspecified narcotics, initial encounter; F25.0 Schizoaffective disorder, bipolar type; Z68.35 Body mass index [BMI] 35.0-35.9, adult; S82.891G Other fracture of right lower leg, subsequent encounter for closed fracture with delayed healing; Z85.038 Personal history of other malignant neoplasm of large intestine; Z87.891 Personal history of nicotine dependence; Y92.89 Other specified places as the place of occurrence of the external cause; Z92.21 Personal history of antineoplastic chemotherapy; W18.39XD Other fall on same level, subsequent encounter; Z79.899 Other long term (current) drug therapy
CPT/HCPCS: 10045; 10081